=== PATIENT | female | born 1930 | race Caucasian/White ===

== ENCOUNTER 2016-10-19 18:16 | Emergency (ER) | payer OTHER, MEDICARE ==
[2016-10-19 18:43] VITALS: BMI 21.4
[2016-10-19] MEDS ORDERED: SODIUM CHLORIDE 0.9% 1000 ML INFUS.BAG IV ONE (20:51)
[2016-10-19] MEDS ORDERED: ONDANSETRON 4 MG/2 ML VIAL IVPUSH ONE (20:51)
[2016-10-19] MEDS ORDERED: ONDANSETRON 4 MG/2 ML VIAL ONE (20:56)
--- NOTE | 2016-10-19 21:07 | PDOC ---
History of Present Illness - General Chief Complaint: Pain Stated Complaint: ABDOMINAL PAIN AND VOMITTING Time Seen by Provider: 10/19/16 19:52 History Source: Patient, Family Exam Limitations: Dementia - History of Present Illness Initial Comments: 10/19/16 21:05 Patient is a 85-year-old f with history of hypertension dementia, lumbar radiculopathy brought by family sisters visting from [place] for complains nausea, vomiting and diarrhea which started at 4 PM to associated with some abdominal pain and weakness. Patient states she has not pain currently. Denies fever, chills, dysuria. Sister are concern about the patient's dementia and that the patient may need 24 hour care in the future. Currently patient lives in independent living with an aide in the daytime and her daughter takes care of her at night. She is ambulatory with a walker. Denies chest pain, dizziness. PMD: Dr. Doyle Neuro: Dr. Yost PMHX: as above PSOCHX: lives in independent Living FamHX; noncontributory All: NKDA GENERAL/CONSTITUTIONAL: [No fever or chills. (+) weakness. No weight change.] HEAD, EYES, EARS, NOSE AND THROAT: [No change in vision. No ear pain or discharge. No sore throat.] CARDIOVASCULAR: [No chest pain or shortness of breath.] RESPIRATORY: [No cough, wheezing, or hemoptysis.] GASTROINTESTINAL: [No nausea, vomiting, diarrhea or constipation. No rectal bleeding.] GENITOURINARY: [No dysuria, frequency, or change in urination.] MUSCULOSKELETAL: [No joint or muscle swelling or pain. No neck or back pain.] SKIN AND BREASTS: [No rash or easy bruising.] NEUROLOGIC: [No headache, vertigo, (+) dementia, loss of consciousness, or loss of sensation.] PSYCHIATRIC: [No depression or anxiety.] ENDOCRINE: [No increased thirst. No abnormal weight change.] HEMATOLOGIC/LYMPHATIC: [No anemia, easy bleeding, or history of blood clots.] ALLERGIC/IMMUNOLOGIC: [No hives or skin allergy. No latex allergy.] GENERAL: [The patient is awake, alert, and oriented x 2, in mild distress actively gaging.] HEAD: [Normal with no signs of trauma.] EYES: [Pupils equal, round and reactive to light, extraocular movements intact, sclera anicteric, conjunctiva clear.] ENT: [Ears normal, nares patent, oropharynx clear without exudates. Moist mucous membranes.] NECK: [Normal range of motion, supple without lymphadenopathy, JVD, or masses.] LUNGS: [Breath sounds equal, clear to auscultation bilaterally. No wheezes, and no crackles.] HEART: [Regular rate and rhythm, normal S1 and S2 without murmur, rub.] ABDOMEN: [Soft, nontender, normoactive bowel sounds. No guarding, no rebound. No masses.] EXTREMITIES: [Normal range of motion, no edema. No clubbing or cyanosis. No cords, erythema, or tenderness.] NEUROLOGICAL: [Cranial nerves II through XII grossly intact. alert and oriented x 2, Normal speech, gait not tested ambulatory with device.] PSYCH: [Normal mood, normal affect.] SKIN: [Warm, Dry, normal turgor, no rashes or lesions noted.] Past History - Past Medical History Allergies/Adverse Reactions: Allergies Allergy/AdvReac Type Severity Reaction Status Date / Time No Known Allergies Allergy Verified 10/19/16 18:36 Home Medications: Ambulatory Orders Donepezil HCl [Aricept -] 5 mg PO DAILY 07/25/16 Amlodipine Besylate [Norvasc -] 5 mg PO DAILY tablet 07/30/16 Docusate Sodium [Colace -] 100 mg PO TID capsule 07/30/16 Donepezil HCl [Aricept -] 10 mg PO DAILY tablet 07/30/16 Gabapentin [Neurontin -] 100 mg PO TID capsule 07/30/16 Heparin - 5,000 unit SQ BID vial 07/30/16 Memantine HCl [Namenda -] 5 mg PO DAILY tab 07/30/16 Dementia: Yes HTN: Yes - Surgical History Appendectomy: Yes - Psycho/Social/Smoking Cessation Hx Suicidal Ideation: No Smoking History: Never smoked Hx Alcohol Use: No Drug/Substance Use Hx: No Substance Use Type: None *Physical Exam - Vital Signs Last Vital Signs Temp Pulse Resp BP Pulse Ox 97.4 F L 62 18 174/84 99 10/19/16 18:37 10/19/16 18:37 10/19/16 18:37 10/19/16 18:37 10/19/16 18:37 ED Treatment Course - LABORATORY CBC & Chemistry Diagram: 10/19/16 21:20 10/19/16 21:15 Medical Decision Making - Medical Decision Making 10/20/16 Patient is a 85-year-old f with history of hypertension dementia, lumbar radiculopathy brought by family sisters visting from [place] for complains nausea, vomiting and diarrhea which started at 4 PM to associated with some abdominal pain consitent with gastroenteritis, will get labs incl trop, ekg, zofran and IVF 10/20/16 00:04 Labs reviewed not acute findings EKG SR rate 71, LAD, (-) ST-T wave changes cxr neg Patient is tolerating po Family states that the patient has perked up I discussed the physical exam findings, ancillary test results and final diagnoses with the patient. I answered all of the patient's questions. The patient was satisfied with the care received and felt comfortable with the discharge plan and treatment plan. The Patient agrees to follow up with the primary care physician within 24-72 hours. *DC/Admit/Observation/Transfer Diagnosis at time of Disposition: Dementia Qualifiers: Dementia type: unspecified type Dementia behavioral disturbance: without behavioral disturbance Qualified Code(s): F03.90 - Unspecified dementia without behavioral disturbance Nausea & vomiting Qualifiers: Vomiting type: unspecified Vomiting Intractability: non-intractable Qualified Code(s): R11.2 - Nausea with vomiting, unspecified Diarrhea Qualifiers: Diarrhea type: unspecified type Qualified Code(s): R19.7 - Diarrhea, unspecified - Discharge Dispostion Disposition: HOME Condition at time of disposition: Stable - Referrals Referrals: Yue Doyle [Non Staff, Medical] - - Patient Instructions Printed Discharge Instructions: Nausea and Vomiting-Adult, Diarrhea Additional Instructions: Your Discharge Instructions: You must call primary care physician within 24 hours to arrange follow-up. Return to the Emergency Department with any new, persistent or worsening symptoms, for fever, chills, SOB, dizziness or any other concerning changes that may occur.
[2016-10-19 21:25] LABS: BASOPHIL 1.4 % (0-2.0); EOSINOPHIL 0.2 % (0-4.5); MCH 31.2 pg (25.7-33.7); MCHC 33.5 g/dl (32.0-36.0); MEAN CELL VOLUME 93.1 fl (80-96); MEAN PLT VOLUME 7.5 fl (7.5-11.1); NEUTROPHILS 83.1 % (42.8-82.8); PLATELET COUNT 231 K/MM3 (134-434); RDW 13.4 % (11.6-15.6); WHITE BLOOD COUNT 6.5 K/mm3 (4.0-10.0)
[2016-10-19 21:49] LABS: ALBUMIN 3.5 g/dl (3.4-5.0); BILIRUBIN,TOTAL 0.3 mg/dL (0.2-1.0); CALCIUM 9.2 mg/dL (8.5-10.1); CREATININE 1.1 mg/dL (0.55-1.02); TOT PROT 6.6 g/dl (6.4-8.2)
[2016-10-19 21:52] LABS: TROPONIN I < 0.02 ng/ml (0.00-0.05)
[2016-10-19 21:58] LABS: URINE APPEARANCE SLCLOUDY; URINE BILIRUBIN NEGATIVE (NEGATIVE); URINE BLOOD NEGATIVE (NEGATIVE); URINE COLOR LTYELLOW; URINE GLUCOSE (UA) NEGATIVE (NEGATIVE); URINE KETONE NEGATIVE (NEGATIVE); URINE LEUK ESTERASE NEGATIVE (NEGATIVE); URINE NITRITE NEGATIVE (NEGATIVE); URINE PROTEIN NEGATIVE (NEGATIVE); URINE UROBILINOGEN NEGATIVE E.U./dl (0.2-1.0)
[2016-10-20 01:56] VITALS: BP 123/59; PULSE 96; TEMP 97.6
--- NOTE | 2016-10-21 16:14 | EKG ---
Test Reason : Blood Pressure : / mmHG Vent. Rate : 071 BPM Atrial Rate : 071 BPM P-R Int : 176 ms QRS Dur : 090 ms QT Int : 434 ms P-R-T Axes : 061 -30 055 degrees QTc Int : 471 ms NORMAL SINUS RHYTHM LEFT AXIS DEVIATION ABNORMAL ECG WHEN COMPARED WITH ECG OF 25-JUL-2016 13:56, LIKELY NO SIGNIFICANT CHANGES Confirmed by AG CRUZ MD ([id number]) on 10/21/2016 4:14:11 PM Referred By: Confirmed By:AG CRUZ MD
== END 2016-10-20 01:57 ==
LOC: JER 18:16
PROC: 3E033GC Introduction of Other Therapeutic Substance into Peripheral Vein, Percutaneous Approach (ICD-10-PCS; principal; 2016-10-19)
DX: K52.9 Noninfective gastroenteritis and colitis, unspecified (principal); I10 Essential (primary) hypertension; F03.90 Unspecified dementia, unspecified severity, without behavioral disturbance, psychotic disturbance, mood disturbance, and anxiety
CPT/HCPCS: 36415; 71010-TC; 80053; 81003; 82550; 83605; 84484; 85025; 93005; 93010; 96374; 99283-25

== ENCOUNTER 2017-06-29 12:08 | Emergency (ER) | payer OTHER, MEDICARE ==
--- NOTE | 2017-06-29 12:21 | PDOC ---
Attending Attestation - Resident Resident Name: Tanya Valadez - HPI HPI: 07/03/17 09:22 Pt presents to the ED complaining of generalized weakness and a single episode of vomiting. Denies fevers or pain. Reports that her symptoms have largely resolved. - Physicial Exam PE: 07/03/17 09:23 Agree with resident's exam. Patient is well appearing and alert. Abdomen is non tender on my exam. - Medical Decision Making 07/03/17 09:23 Pt presents to the ED complaining of generalized weakness and a single episode of vomiting. Symptoms have now resolved and patient is tolerating PO. Abdomen is non tender. Labs are normal. Given that her symptoms have resolved, she has no abdominal pain or tenderness and is tolerating PO, serious intraabdominal pathology seems unlikely. Will discharge home.
[2017-06-29 12:36] VITALS: BP 174/70; PULSE 63; TEMP 98.2; BMI 23.4
[2017-06-29] MEDS ORDERED: SODIUM CHLORIDE 0.9% 1000 ML INFUS.BAG IV ONE (12:36)
--- NOTE | 2017-06-29 12:43 | PDOC ---
History of Present Illness - General Chief Complaint: Weakness Stated Complaint: WEAKNESS, NAUSEA Time Seen by Provider: 06/29/17 12:16 - History of Present Illness Initial Comments: 06/29/17 12:37 Majority of HPI obtained from aide @ bedside as patient has Alzheimer's Dementia and keeps repeating "I'm fine." Patient is an 86 y.o. female with a PMH of Alzheimer's Dementia, HTN and L5 radiculopathy who presents to our ED via EMS for an episode of vomiting and stating "I don't feel well." As per cardiovascular invasive specialist, patient was in her usual state of health this morning and while eating her breakfast vomited (non-bloody) one time and then cardiovascular invasive specialist called family and EMS. Health Services Coordinator who is with patient daily denies any syncopal episode, patient c/o chest pain or shortness of breath or any recent medication changes. Surgical: None NKDA PMD: Dr. Doyle Social: denies cigarettes, 1-2 alcoholic drinks monthly, denies recreational drugs Past History - Past Medical History Allergies/Adverse Reactions: Allergies Allergy/AdvReac Type Severity Reaction Status Date / Time No Known Allergies Allergy Verified 10/19/16 18:36 Home Medications: Ambulatory Orders Donepezil HCl [Aricept -] 10 mg PO DAILY tablet 07/30/16 Memantine HCl [Namenda -] 28 mg PO DAILY 06/29/17 Telmisartan/Hydrochlorothiazid [Telmisartan-Hctz 40-12.5 mg Tb] 1 each PO DAILY 06/29/17 Dementia: Yes HTN: Yes - Surgical History Appendectomy: Yes - Suicide/Smoking/Psychosocial Hx Smoking History: Never smoked Have you smoked in the past 12 months: No Information on smoking cessation initiated: No Hx Alcohol Use: No Drug/Substance Use Hx: No Substance Use Type: None Review of Systems - Review of Systems Able to Perform ROS?: No *Physical Exam - Vital Signs Last Vital Signs Temp Pulse Resp BP Pulse Ox 98.2 F 63 18 174/70 99 06/29/17 12:19 06/29/17 12:19 06/29/17 12:19 06/29/17 12:19 06/29/17 12:19 - Physical Exam General Appearance: Yes: Appropriately Dressed HEENT: positive: ROSE[place] Respiratory/Chest: positive: Lungs Clear, Normal Breath Sounds Cardiovascular: positive: S1, S2 Gastrointestinal/Abdominal: positive: Normal Bowel Sounds Integumentary: positive: Warm, Other (B/L LE xerostosis) Neurologic: positive: Alert ED Treatment Course - LABORATORY CBC & Chemistry Diagram: 06/29/17 12:42 06/29/17 12:42 Medical Decision Making - Medical Decision Making 06/29/17 14:18 Patient is an 86 y.o. female who presents with an isolated episode of post prandial emesis. As patient has a h/o Alzheimer's dementia, subjective complaints are difficult to ascertain. Generalized work-up for any active infectious or cardiac process initiated. PLAN: 1. CBC, CMP 2. EKG 3. CXR CMP notable for mild GERALD (1.2 today, 0.9 --> 1.1 on previous visits). Patient given gentle hydration with 500 mL IV NS. CXR shows no acute cardiopulmonary process. EKG shows sinus bradycardia (HR 56) with LAD (QRS complex negative in aVF) with normal SD, QT intervals, and no ST segment elevations/depressions and no T wave flattening. LAD consistent with prior ECG from 10/2016. Patient's aide @ bedside confirms patient has daily assistance and is at baseline. As patient was tolerating PO intake, improved and ambulatory, patient discharged home with return precautions and instructions to follow-up with PCP. *DC/Admit/Observation/Transfer Diagnosis at time of Disposition: Dehydration - Discharge Dispostion Disposition: HOME Condition at time of disposition: Good Admit: No - Patient Instructions Printed Discharge Instructions: Improving Nutrition in the Elderly, DI for Dehydration -- Adult Additional Instructions: Please follow up with your PCP, Dr. Doyle, in the next 3-5 days. A copy of your lab work has been provided to you. Please return to the Emergency Department for any worsening or concerning symptoms.
[2017-06-29 12:50] LABS: EOSINOPHIL 0.3 % (0-4.5); MCH 31.1 pg (25.7-33.7); MCHC 33.4 g/dl (32.0-36.0); MEAN CELL VOLUME 93.2 fl (80-96); MEAN PLT VOLUME 7.4 fl (7.5-11.1); NEUTROPHILS 81.4 % (42.8-82.8); PLATELET COUNT 187 K/MM3 (134-434); RDW 12.9 % (11.6-15.6); WHITE BLOOD COUNT 6.7 K/mm3 (4.0-10.0)
[2017-06-29 13:30] LABS: ALBUMIN 3.6 g/dl (3.4-5.0); ANION GAP 10 (8-16); BILIRUBIN,TOTAL 0.4 mg/dL (0.2-1.0); CALCIUM 9.1 mg/dL (8.5-10.1); CO2 30 mmol/L (21-32); CREATININE 1.2 mg/dL (0.55-1.02); GLUCOSE,RANDOM 126 mg/dL (74-106); MAGNESIUM 2.2 mg/dL (1.8-2.4); SGOT/AST 22 U/L (15-37); SGPT/ALT 25 U/L (12-78); TOT PROT 6.6 g/dl (6.4-8.2)
[2017-06-29 13:31] LABS: ALK PHOS 83 U/L (45-117)
--- NOTE | 2017-06-30 10:10 | EKG ---
Test Reason : Blood Pressure : / mmHG Vent. Rate : 056 BPM Atrial Rate : 056 BPM P-R Int : 194 ms QRS Dur : 090 ms QT Int : 458 ms P-R-T Axes : 056 -33 010 degrees QTc Int : 441 ms SINUS BRADYCARDIA LEFT AXIS DEVIATION MODERATE VOLTAGE CRITERIA FOR LVH, MAY BE NORMAL VARIANT ABNORMAL ECG WHEN COMPARED WITH ECG OF 19-OCT-2016 22:58, NO SIGNIFICANT CHANGE WAS FOUND Confirmed by NANCY CHAPMAN, AG ([id number]) on 06/30/2017 10:10:25 AM Referred By: Confirmed By:AG CRUZ MD
== END 2017-06-29 14:26 ==
LOC: JER 12:08
DX: E86.0 Dehydration (principal); G30.9 Alzheimer's disease, unspecified; F02.80 Dementia in other diseases classified elsewhere, unspecified severity, without behavioral disturbance, psychotic disturbance, mood disturbance, and anxiety; I10 Essential (primary) hypertension; L85.3 Xerosis cutis
CPT/HCPCS: 36415; 71020-TC; 80053; 83605; 83735; 85025; 93005; 93010; 99284-25

== ENCOUNTER 2019-06-10 09:48 | Inpatient (IN) | payer OTHER, MEDICARE ==
[2019-06-10 10:36] LABS: BASO % 0.6 % (0-2.0); EOS % 0.1 % (0-4.5); HEMATOCRIT 32.7 % (32.4-45.2); LYMPH % 9.4 % (8-40); MCH 31.3 pg (25.7-33.7); MCHC 33.6 g/dl (32.0-36.0); MEAN CELL VOLUME 93.2 fl (80-96); MEAN PLT VOLUME 7.6 fl (7.5-11.1); MONO % 8.2 % (3.8-10.2); NEUT % 81.7 % (42.8-82.8); PLATELET COUNT 180 K/MM3 (134-434); RBC 3.51 M/mm3 (3.60-5.2); RDW 13.3 % (11.6-15.6); WHITE BLOOD COUNT 7.2 K/mm3 (4.0-10.0)
--- NOTE | 2019-06-10 10:41 | PDOC ---
Documentation entered by Luna Jones SCRIBE, acting as scribe for Felisha Gambino MD. Felisha Gambino MD: This documentation has been prepared by the Karen palmer Adrianna, SCRIBE, under my direction and personally reviewed by me in its entirety. I confirm that the documentation accurately reflects all work, treatment, procedures, and medical decision making performed by me. History of Present Illness - General Chief Complaint: Injury Stated Complaint: FALL Time Seen by Provider: 06/10/19 10:18 History Source: Care Provider Exam Limitations: Dementia - History of Present Illness Initial Comments: 86 y.o. female with a PMH of Alzheimer's Dementia, HTN and L5 radiculopathy, presenting s/p fall. Patient is poor historian secondary to Dementia, and patients aid at bedside provides history. Aid notes that she is with the patient from 9-5 (Friday-Friday, another aid comes for assistance throughout the night), and upon getting to her apartment this morning at 8:50 am she found the patient on the floor in the bathroom. She notes the patient was clinging to her bath curtains, complaining of neck and low back pain. Aid notes the patient was awake and conversational, but was nervous, confused, and unsure of what had happened (patient cannot recall the event). Patient is oriented to place and person at baseline. She presents with bruising to the left shoulder and left knee, and endorses left hip pain while in the ED. The patient is not on aspirin , plavix, Coumadin, or any other blood thinners. Denies fever, chills, chest pain, SOB, palpitation, dizziness, N, V, D, abdominal pain, bladder and bowel problems, leg swelling, rash. No sick contacts or travel. No new changes in medications. No suspicious food intake Allergies: None Past Medical History/PSH: Alzheimer's Dementia, HTN and L5 radiculopathy, appendectomy Social history: Lives at home with 24/7 aid Friday-Friday and daughter Friday- Friday. No tobacco, ETOH or drug use. Meds: as documented in EMR Family history: noncontributory PMD: Dr. Doyle Past History - Past Medical History Allergies/Adverse Reactions: Allergies Allergy/AdvReac Type Severity Reaction Status Date / Time No Known Allergies Allergy Verified 06/10/19 09:55 Home Medications: Ambulatory Orders Donepezil HCl [Aricept -] 10 mg PO DAILY tablet 07/30/16 Memantine HCl [Namenda -] 28 mg PO DAILY 06/29/17 Telmisartan/Hydrochlorothiazid [Telmisartan-Hctz 40-12.5 mg Tb] 1 each PO DAILY 06/29/17 COPD: No Dementia: Yes HTN: Yes - Surgical History Appendectomy: Yes - Psycho Social/Smoking Cessation Hx Smoking History: Never smoked Have you smoked in the past 12 months: No Hx Alcohol Use: No Drug/Substance Use Hx: No Substance Use Type: None Review of Systems - Review of Systems Able to Perform ROS?: No (secondary to dementia) *Physical Exam - Vital Signs Last Vital Signs Temp Pulse Resp BP Pulse Ox 98.1 F 81 18 179/74 H 100 06/10/19 09:56 06/10/19 09:56 06/10/19 09:56 06/10/19 09:56 06/10/19 09:56 - Physical Exam Comments: General: GCS 14 NAD, well appearing, demented and pleasant. Follows commands. HEENT: NCAT, PERRL, EOMI. Airway intact. No battles sign or raccoon eyes. No e/ o ocular. Dentition intact. No e/o septal hematoma, nasal bridge stable. Neck: neck supple, no midline C spine tenderness or deformity, ROM intact. No anterior mass or crepitus, trachea midline. Resp: Lungs clear bilaterally Chest: no clavicle or chest wall tenderness or crepitus CVS: RRR, 2+ pulses throughout. Abdomen: Abdomen soft, nontender, nondistended. Back: Back nontender, no midline spinal tenderness along cervical/thoracic/ lumbar spine, FROM, no stepoffs. MSK: +left knee swelling. +left lateral hip ttp at the greater trochanter. Pelvis stable, Extremities symmetric, no focal areas of tenderness or deformities, proximal and distally; no pain on axial loading. FROM in all extrem. No laxity in left knee joint. 5/5 vegetable tier strength, 5/5 prox and distal strength and shoulder shrug bilaterally. Neuro: Alert, oriented appropriately to person and place. CN II-XII grossly symmetric and intact. no focal neuro deficits. Sensation and strength intact throughout. Skin: intact, well perfused. No ecchymosis neck, chest or abdomen or back. + ecchymosis to left anterior knee and shoulder joint. +dry skin. +mild skin discoloration diffusely. Heart Score/ECG Review #1 ECG reviewed & interpreted by me at: 10:20 General ECG Interpretation: Sinus Rhythm, Normal Rate, Normal Intervals, No acute ischemic changes Compared to previous ECG there are: No significant change 06/10/19 10:40 EKG normal sinus rhythm at 80 bpm, no interval abnormalities, narrow QRS, ST and T wave segments and morphology normal. unchanged. ED Treatment Course - LABORATORY CBC & Chemistry Diagram: 06/10/19 10:25 06/10/19 10:25 - RADIOLOGY Radiology Studies Ordered: Category Date Time Status CERVICAL SPINE CT W/O CONTR [CT] Stat CT Scan 06/10/19 10:[address] WITHOUT CONTRAST [CT] Stat CT Scan 06/10/19 10:33 Ordered CHEST PA & LAT [RAD] Stat Radiology 06/10/19 10:17 Ordered HIP & PELVIS-LEFT [RAD] Stat Radiology 06/10/19 10:31 Ordered KNEE 3 POS-LEFT [RAD] Stat Radiology 06/10/19 10:31 Ordered SHOULDER-LEFT [RAD] Stat Radiology 06/10/19 10:31 Ordered Radiograph Interpretation: EXAM#: TYPE/EXAM: RESULT: [id number] RAD/CHEST PA LAT Chest pain. Rule out infiltrate. Impression. No evidence of CHF, pulmonary infiltrates, pneumothorax, or large pleural effusion. Reported By: Saravanan Toure MD 06/10/19 11:21 EXAM#: TYPE/EXAM: RESULT: [id number] RAD/SHOULDER-LEFT Evaluate for fracture. Left shoulder ecchymosis. Left shoulder 2 views. No evidence of glenohumeral joint dislocation. AC joint is not widened. The visualized osseous structures appear intact. No acute bony abnormalities are seen. Reported By: Saravanan Toure MD 06/10/19 11:22 EXAM#: TYPE/EXAM: RESULT: [id number] RAD/HIP PELVIS-LEFT Evaluate for fracture. Impression. No acute fracture is seen. If symptoms persist follow-up imaging may be considered. Reported By: Saravanan Toure MD 06/10/19 11:28 EXAM#: TYPE/EXAM: RESULT: [id number] RAD/KNEE 3 POS-LEFT Left knee: Pain. 3 views of the left knee reveal loss of bone density, degenerative changes, chondrocalcinosis and vascular calcifications. An acute fracture or subluxation is not seen. A joint effusion is not visualized. If symptoms persist, further imaging may be of help. Correlation recommended. Reported By: Juan Miller MD 06/10/19 11:32 EXAM#: TYPE/EXAM: RESULT: [id number] CT/HEAD CT WITHOUT CONTRAST CT scan of the brain c-. Evaluate for intracranial hemorrhage. Impression. No evidence of acute intracranial hemorrhage, edema, midline shift, mass effect, or skull fracture. No CT evidence of acute territorial ischemic changes. Reported By: Saravanan Toure MD 06/10/19 11:47 EXAM#: TYPE/EXAM: RESULT: [id number] CT/CERVICAL SPINE CT W/O CONTR Status post fall. Rule out injury IMPRESSION: The alignment is satisfactory. No gross fracture or subluxation is seen. Mild degenerative disc disease and prominent left facet hypertrophy, as described above. Reported By: Ralph Rico MD 06/10/19 13:42 Medical Decision Making - Medical Decision Making 06/10/19 10:39 See HPI for details. Prior notes reviewed, including admissions, discharges and consultations. Vital signs reviewed, wnl. Vital Signs Temp Pulse Resp BP Pulse Ox 98.1 F 81 18 179/74 H 100 06/10/19 09:56 06/10/19 09:56 06/10/19 09:56 06/10/19 09:56 06/10/19 09:56 ddx ICH, SDH, contusion, closed head injury, rib fx, chest contusion, pelvic fx , hip fx, contusion, msk strain, sprain. electrolyte/metabolic derangements, rhabdomyolysis. laboratory results and imaging reviewed, basic labs and lytes wnl, including Cr Cardiac panel_ELEVATED ck level >1300 - remained the same after fluids initial trop neg, trended up to 0.06 likely demand and metabolic EKG normal sinus rhythm at 80 bpm, no interval abnormalities, narrow QRS, ST and T wave segments and morphology normal. unchanged. ED course -interventions: IVF given mild rhabdo, preserved Cr which is reassuring trend trop/ck levels admit to Dr Bustamante service, medical management, observation and tele given + trop. 06/10/19 10:41 06/10/19 14:19 06/10/19 15:08 Discharge - Discharge Information Problems reviewed: Yes Clinical Impression/Diagnosis: Elevated creatine kinase level Rhabdomyolysis Qualifiers: Rhabdomyolysis type: traumatic Encounter type: initial encounter Qualified Code (s): T79.6XXA - Traumatic ischemia of muscle, initial encounter Condition: Stable - Admission Yes - Follow up/Referral - Patient Discharge Instructions - Post Discharge Activity
[2019-06-10 11:24] LABS: ALBUMIN 3.4 g/dl (3.4-5.0); BILIRUBIN,TOTAL 0.7 mg/dL (0.2-1); BLOOD UREA NITROGEN 21.8 mg/dL (7-18); CALCIUM 8.8 mg/dL (8.5-10.1); CREATININE 1.2 mg/dL (0.55-1.3); MAGNESIUM 2.1 mg/dL (1.8-2.4); POTASSIUM 3.6 mmol/L (3.5-5.1)
[2019-06-10] MEDS ORDERED: SODIUM CHLORIDE 0.9% 500 ML INFUS.BAG IV ONE ×2 (11:30→11:49)
[2019-06-10 13:19] LABS: URINE APPEARANCE CLEAR; URINE BILIRUBIN NEGATIVE (NEGATIVE); URINE COLOR YELLOW; URINE GLUCOSE (UA) NEGATIVE (NEGATIVE); URINE KETONE NEGATIVE (NEGATIVE); URINE LEUK ESTERASE NEGATIVE (NEGATIVE); URINE NITRITE NEGATIVE (NEGATIVE); URINE PROTEIN NEGATIVE (NEGATIVE); URINE UROBILINOGEN 0.2 mg/dL (0.2-1.0)
--- NOTE | 2019-06-10 14:34 | EKG ---
Test Reason : Blood Pressure : / mmHG Vent. Rate : 080 BPM Atrial Rate : 080 BPM P-R Int : 164 ms QRS Dur : 098 ms QT Int : 414 ms P-R-T Axes : 049 -44 054 degrees QTc Int : 477 ms NORMAL SINUS RHYTHM LEFT AXIS DEVIATION INCOMPLETE RIGHT BUNDLE BRANCH BLOCK MINIMAL VOLTAGE CRITERIA FOR LVH, MAY BE NORMAL VARIANT SEPTAL INFARCT , AGE UNDETERMINED ABNORMAL ECG WHEN COMPARED WITH ECG OF 29-JUN-2017 12:14, INCOMPLETE RIGHT BUNDLE BRANCH BLOCK IS NOW PRESENT SEPTAL INFARCT IS NOW PRESENT Confirmed by ARACELI CHAPMAN, ELHAM ([id number]) on 06/10/2019 2:33:53 PM Referred By: Confirmed By:ELHAM CHARLES MD
[2019-06-10] MEDS: SODIUM CHLORIDE 0.45% 1,000 ML IV SCH (15:54)
[2019-06-10] MEDS ORDERED: FUROSEMIDE 40 MG/4 ML INJECTABLE VIAL IVPUSH ONE (21:45)
[2019-06-10] MEDS: MEMANTINE HCL 10 MG TABLET (FP) PO SCH (22:01)
--- NOTE | 2019-06-10 23:40 | HP ---
Admitting History and Physical - Admission History of Present Illness: 86 y.o. female with a PMH of Alzheimer's Dementia, HTN and L5 radiculopathy, presenting s/p fall. Patient is poor historian secondary to Dementia, and patients aid at bedside provides history. Aid notes that she is with the patient from 9-5 (Friday-Friday, another aid comes for assistance throughout the night), and upon getting to her apartment this morning at 8:50 am she found the patient on the floor in the bathroom. She notes the patient was clinging to her bath curtains, complaining of neck and low back pain. Aid notes the patient was awake and conversational, but was nervous, confused, and unsure of what had happened (patient cannot recall the event). Patient is oriented to place and person at baseline. She presents with bruising to the left shoulder and left knee, and endorses left hip pain while in the ED. The patient is not on aspirin , plavix, Coumadin, or any other blood thinners. Denies fever, chills, chest pain, SOB, palpitation, dizziness, N, V, D, abdominal pain, bladder and bowel problems, leg swelling, rash. No sick contacts or travel. No new changes in medications. No suspicious food intake Allergies: None Past Medical History/PSH: Alzheimer's Dementia, HTN and L5 radiculopathy, appendectomy Social history: Lives at home with 24/7 aid Friday-Friday and daughter Friday- Friday. No tobacco, ETOH or drug use. 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 Cardiovascular: Yes: HTN Reproductive: Yes: Postmenopausal Musculoskeletal: Yes: Chronic low back pain - Smoking History Smoking history: Never smoked Have you smoked in the past 12 months: No - Alcohol/Substance Use Hx Alcohol Use: No - Social History Usual Living Arrangement: Yes: Assisted Living ADL: Support Services History of Recent Travel: No Home Medications - Allergies Allergies/Adverse Reactions: Allergies Allergy/AdvReac Type Severity Reaction Status Date / Time No Known Allergies Allergy Verified 06/10/19 09:55 - Home Medications Home Medications: Ambulatory Orders Donepezil HCl [Aricept -] 10 mg PO DAILY tablet 07/30/16 Acetaminophen [Tylenol .Regular Strength -] 650 mg PO Q6H PRN tablet 06/17/19 Cefuroxime Axetil [Ceftin -] 250 mg PO BID 3 Days #6 tablet 06/17/19 Losartan 50Mg/Hctz 12.5MG [Hyzaar -] 1 tab PO DAILY tablet 06/17/19 Memantine HCl [Namenda -] 10 mg PO BID tablet 06/17/19 Potassium Chloride [K-Dur -] 40 meq PO DAILY tablet.er 06/17/19 Physical Examination Vital Signs: Vital Signs Temperature 97.9 F 06/10/19 22:00 Pulse Rate 83 06/10/19 22:00 Respiratory Rate 18 06/10/19 22:00 Blood Pressure 167/67 06/10/19 22:00 O2 Sat by Pulse Oximetry (%) 97 06/10/19 21:00 Eyes: Yes: Conjunctiva Clear, EOM Intact HENT: Yes: Atraumatic, Normocephalic Neck: Yes: Supple, Trachea Midline Cardiovascular: Yes: Regular Rate and Rhythm Respiratory: Yes: CTA Bilaterally Gastrointestinal: Yes: Normal Bowel Sounds, Soft ...Rectal Exam: Yes: Deferred Renal/: Yes: WNL Breast(s): Yes: WNL Musculoskeletal: Yes: Back Pain, Muscle Weakness Extremities: Yes: WNL Peripheral Pulses WNL: Yes Neurological: Yes: Pre-Existing Deficit ...Motor Strength: WNL Psychiatric: Yes: Alert, Other (dementia) Labs: CBC, BMP 06/10/19 10:25 06/10/19 10:25 Problem List - Problems (1) Rhabdomyolysis Code(s): M62.82 - RHABDOMYOLYSIS Qualifiers: Rhabdomyolysis type: traumatic Encounter type: initial encounter Qualified Code(s): T79.6XXA - Traumatic ischemia of muscle, initial encounter (2) Dementia Code(s): F03.90 - UNSPECIFIED DEMENTIA WITHOUT BEHAVIORAL DISTURBANCE Qualifiers: Dementia type: unspecified type Dementia behavioral disturbance: without behavioral disturbance Qualified Code(s): F03.90 - Unspecified dementia without behavioral disturbance (3) HTN (hypertension) Code(s): I10 - ESSENTIAL (PRIMARY) HYPERTENSION Qualifiers: Hypertension type: essential hypertension Qualified Code(s): I10 - Essential (primary) hypertension (4) Lumbar disc herniation with radiculopathy Code(s): M51.16 - INTERVERTEBRAL DISC DISORDERS W RADICULOPATHY, LUMBAR REGION Assessment/Plan #S/p unwitnessed fall - CT scan head neg - Cervical spine CT neg - Lt shoulder xray neg - Lt Knee xray neg - Lt hip/ pevis xray neg - PT eval # Rhabdo - Iv fuids observe for floud overload - lasix as needed - trend CK #Dementia - cont Aricept and Namenda - Agitated at night- Ativan PRN - UA neg, C& S pending - Chest ray neg for acute pathology # BP fluctuates Cont home med # New onset intentional tremor Neuro consult
[2019-06-11] MEDS: SODIUM CHLORIDE 0.45% 1,000 ML IV SCH ×4 (01:36→21:29)
[2019-06-11 06:46] LABS: HEMATOCRIT 34.6 % (32.4-45.2); HEMOGLOBIN 11.6 GM/dL (10.7-15.3); MCH 31.3 pg (25.7-33.7); MCHC 33.5 g/dl (32.0-36.0); MEAN CELL VOLUME 93.3 fl (80-96); MEAN PLT VOLUME 7.8 fl (7.5-11.1); PLATELET COUNT 194 K/MM3 (134-434); RBC 3.71 M/mm3 (3.60-5.2); WHITE BLOOD COUNT 5.8 K/mm3 (4.0-10.0)
[2019-06-11 07:43] LABS: ALBUMIN 3.5 g/dl (3.4-5.0); BLOOD UREA NITROGEN 15.6 mg/dL (7-18); CALCIUM 8.9 mg/dL (8.5-10.1); CREATININE 1.1 mg/dL (0.55-1.3); POTASSIUM 3.5 mmol/L (3.5-5.1); TOT PROT 6.5 g/dl (6.4-8.2)
[2019-06-11] MEDS: MEMANTINE HCL 10 MG TABLET (FP) PO SCH ×2 (09:10→21:29)
[2019-06-11] MEDS: LOSARTAN 50MG/HCTZ 12.5MG 1 TAB (FP) PO SCH (09:10)
[2019-06-11] MEDS: DONEPEZIL HCL 5 MG TABLET (FP) PO SCH (09:10)
--- NOTE | 2019-06-11 10:15 | PN ---
Progress Note (short form) - Note Progress Note: 88 y/o female found sitting in bed, alert and O x 2. Denies pain at present. Dtr present at bedside. Nurse reports that pt was agitated during the night. Vital Signs Period Temp Pulse Resp BP Sys/Chambers Pulse Ox Last 24 Hr 97.8 F-98.4 F 73-86 18-18 144-175/67-91 97-98 CBC, BMP 06/11/19 06:10 06/11/19 06:10 HEENT- NL Neck- Supple Lungs- CTAB Heart- S1/S2 Abd- Soft, NT Skin- Intact but bruises on lt shoulder, lt knee and lt upper back Ext- Full ROM UEs and LEs, Good hand strength B/L Intentional tremors rt UE No B/L LE edema Active Medications Donepezil HCl (Aricept -) 10 mg PO DAILY [facility] Last Admin: 06/11/19 09:10 Dose: 10 mg HCTZ/Losartan Potassium (Hyzaar -) 1 tab PO DAILY [facility] Last Admin: 06/11/19 09:10 Dose: 1 tab Sodium Chloride (1/2 Normal Saline) 1,000 mls @ 100 mls/hr IV ASDIR [facility] Last Admin: 06/11/19 01:36 Dose: 100 mls/hr Lorazepam (Ativan -) 0.5 mg PO BID PRN PRN Reason: ANXIETY Memantine (Namenda -) 10 mg PO BID [facility] Last Admin: 06/11/19 09:10 Dose: 10 mg #S/p unwitnessed fall - CT scan head neg - Cervical spine CT neg - Lt shoulder xray neg - Lt Knee xray neg - Lt hip/ pevis xray neg - PT eval #Dementia - cont Aricept and Namenda - Agitated at night- Ativan PRN - UA neg, C& S pending - Chest ray neg for acute pathology No signs of heart failure # BP fluctuates Cont home med # New onset intentional tremor Neuro consult Plan- All neg results discussed with dtr. Informed of nighttime agitation. Ativan PRN will be rx'd. Informed Neuro will be consulted for new onset tremor. Awaiting PT eval and culture results. Dtr agreed to plan of care. Problem List - Problems (1) Rhabdomyolysis Code(s): M62.82 - RHABDOMYOLYSIS Qualifiers: Rhabdomyolysis type: traumatic Encounter type: initial encounter Qualified Code(s): T79.6XXA - Traumatic ischemia of muscle, initial encounter (2) Dementia Code(s): F03.90 - UNSPECIFIED DEMENTIA WITHOUT BEHAVIORAL DISTURBANCE Qualifiers: Dementia type: unspecified type Dementia behavioral disturbance: without behavioral disturbance Qualified Code(s): F03.90 - Unspecified dementia without behavioral disturbance (3) HTN (hypertension) Code(s): I10 - ESSENTIAL (PRIMARY) HYPERTENSION Qualifiers: Hypertension type: essential hypertension Qualified Code(s): I10 - Essential (primary) hypertension (4) Lumbar disc herniation with radiculopathy Code(s): M51.16 - INTERVERTEBRAL DISC DISORDERS W RADICULOPATHY, LUMBAR REGION
[2019-06-11] MEDS: LORazepam 0.5 MG TABLET PO PRN ×2 (11:04→21:59)
[2019-06-11] MEDS ORDERED: FLU VACCINE QUAD 60 MCG/0.5 ML (MDV 19-20) IM ONE (11:32)
[2019-06-11] MEDS ORDERED: PNEUMOC 13-VAL CONJ-DIP CRM/PF 0.5 ML DISP.SYRIN IM ONE (11:32)
--- NOTE | 2019-06-11 12:17 | CONSULT ---
Consult - text type - Consultation Consultation Note: Neurology History of Present Illness: 86 y.o. female with a PMH of Alzheimer's Dementia, HTN and L5 radiculopathy, presenting s/p fall. Patient is poor historian secondary to Dementia, and patients daughter at bedside provided history. Patient presented found on the floor in the bathroom. Aid noted the patient was clinging to her bath curtains, complaining of neck and low back pain. Aid noted the patient was awake and conversational, but was nervous, confused, and unsure of what had happened ( patient cannot recall the event). Patient is oriented to place and person at baseline. She presents with bruising to the left shoulder and left knee, and endorses left hip pain while in the ED. The patient is not on aspirin, plavix, Coumadin, or any other blood thinners. Denied fever, chills, chest pain, SOB, palpitation, dizziness, N, V, D, abdominal pain, bladder and bowel problems, leg swelling, rash. No sick contacts or travel. No new changes in medications. No suspicious food intake. I was consulted as patient reportedly withtremor of the right upper extremity.. According to the daughter this was not present previously and possibly related to acute hospitalization. I discussed with them that there are medications available for tremor such as primidone 50 mg but at this point it may be better to just monitor and discussed the tremor continues as an outpatient taken follow-up in the office for further evaluation and management. The daughter was in agreement and wanted to pursue conservative measures. I did review the noncontrast head CT that was completed on admission and did not show any significant structural abnormalities. I discussed this with thepatient and daughter at bedside as well. 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 Cardiovascular: Yes: HTN Reproductive: Yes: Postmenopausal Musculoskeletal: Yes: Chronic low back pain - Smoking History Smoking history: Never smoked Have you smoked in the past 12 months: No - Alcohol/Substance Use Hx Alcohol Use: No - Social History Usual Living Arrangement: Yes: Assisted Living ADL: Support Services History of Recent Travel: No Family: HTN Home Medications - Allergies Allergies/Adverse Reactions: Allergies Allergy/AdvReac Type Severity Reaction Status Date / Time No Known Allergies Allergy Verified 06/10/19 09:55 - Home Medications Home Medications: Ambulatory Orders Donepezil HCl [Aricept -] 10 mg PO DAILY tablet 07/30/16 Memantine HCl [Namenda -] 28 mg PO DAILY 06/29/17 Telmisartan/Hydrochlorothiazid [Telmisartan-Hctz 40-12.5 mg Tb] 1 each PO DAILY 06/29/17 Physical Examination Vital Signs: Vital Signs Temperature 97.9 F 06/10/19 22:00 Pulse Rate 83 06/10/19 22:00 Respiratory Rate 18 06/10/19 22:00 Blood Pressure 167/67 06/10/19 22:00 O2 Sat by Pulse Oximetry (%) 97 06/10/19 21:00 Eyes: Yes: Conjunctiva Clear, EOM Intact HENT: Yes: Atraumatic, Normocephalic Neck: Yes: Supple, Trachea Midline Cardiovascular: Yes: Regular Rate and Rhythm Respiratory: Yes: CTA Bilaterally Gastrointestinal: Yes: Normal Bowel Sounds, Soft ...Rectal Exam: Yes: Deferred Renal/: Yes: WNL Breast(s): Yes: WNL Musculoskeletal: Yes: Back Pain, Muscle Weakness Extremities: Yes: WNL Peripheral Pulses WNL: Yes Neurological: CN intact, moves extremities symmetrically, bilateral. Sensory intact, mild intention tremor noted CBCD WBC 5.8 K/mm3 (4.0-10.0) 06/11/19 06:10 RBC 3.71 M/mm3 (3.60-5.2) 06/11/19 06:10 Hgb 11.6 GM/dL (10.7-15.3) 06/11/19 06:10 Hct 34.6 % (32.4-45.2) 06/11/19 06:10 MCV 93.3 fl (80-96) 06/11/19 06:10 MCHC 33.5 g/dl (32.0-36.0) 06/11/19 06:10 RDW 13.0 % (11.6-15.6) 06/11/19 06:10 Plt Count 194 K/MM3 (134-434) 06/11/19 06:10 MPV 7.8 fl (7.5-11.1) 06/11/19 06:10 CMP Sodium 144 mmol/L (136-145) 06/11/19 06:10 Potassium 3.5 mmol/L (3.5-5.1) 06/11/19 06:10 Chloride 108 mmol/L (98-107) H 06/11/19 06:10 Carbon Dioxide 28 mmol/L (21-32) 06/11/19 06:10 Anion Gap 9 MMOL/L (8-16) 06/11/19 06:10 BUN 15.6 mg/dL (7-18) 06/11/19 06:10 Creatinine 1.1 mg/dL (0.55-1.3) 06/11/19 06:10 Random Glucose 79 mg/dL (74-106) 06/11/19 06:10 Calcium 8.9 mg/dL (8.5-10.1) 06/11/19 06:10 Total Bilirubin 1.0 mg/dL (0.2-1) 06/11/19 06:10 AST 65 U/L (15-37) H 06/11/19 06:10 ALT 38 U/L (13-61) 06/11/19 06:10 Alkaline Phosphatase 94 U/L (45-117) 06/11/19 06:10 Total Protein 6.5 g/dl (6.4-8.2) 06/11/19 06:10 Albumin 3.5 g/dl (3.4-5.0) 06/11/19 06:10 CARDIAC ENZYMES Creatine Kinase 1216 U/L (26-192) H 06/10/19 13:24 Troponin I 0.06 ng/ml (0.00-0.05) H 06/10/19 13:24 Plan: 86 y.o. female with a PMH of Alzheimer's Dementia, HTN and L5 radiculopathy, presenting s/p fall. Patient is poor historian secondary to Dementia, and patients daughter at bedside provided history. Patient presented found on the floor in the bathroom. Aid noted the patient was clinging to her bath curtains, complaining of neck and low back pain. Aid noted the patient was awake and conversational, but was nervous, confused, and unsure of what had happened ( patient cannot recall the event). Patient is oriented to place and person at baseline. She presents with bruising to the left shoulder and left knee, and endorses left hip pain while in the ED. The patient is not on aspirin, plavix, Coumadin, or any other blood thinners. Denied fever, chills, chest pain, SOB, palpitation, dizziness, N, V, D, abdominal pain, bladder and bowel problems, leg swelling, rash. No sick contacts or travel. No new changes in medications. No suspicious food intake. I was consulted as patient reportedly withtremor of the right upper extremity.. According to the daughter this was not present previously and possibly related to acute hospitalization. I discussed with them that there are medications available for tremor such as primidone 50 mg but at this point it may be better to just monitor and discussed the tremor continues as an outpatient taken follow-up in the office for further evaluation and management. The daughter was in agreement and wanted to pursue conservative measures. I did review the noncontrast head CT that was completed on admission and did not show any significant structural abnormalities. I discussed this with thepatient and daughter at bedside as well. Continue dementia medications consider psych evaluation if needed as patient's daughter reporting hallucinations. Fall precautions recommended, consider syncopal workup. Patient to follow-up in office if tremor continues after discharge.
[2019-06-11] MEDS ORDERED: ACETAMINOPHEN 325 MG TABLET (FP) PO PRN (22:55)
[2019-06-11] MEDS ORDERED: HALOPERIDOL LACTATE 5 MG/ML IM ONE (23:00)
[2019-06-12] MEDS: SODIUM CHLORIDE 0.45% 1,000 ML IV SCH ×4 (06:11→21:04)
[2019-06-12 07:53] LABS: BASO % 1.1 % (0-2.0); EOS % 1.2 % (0-4.5); HEMATOCRIT 30.4 % (32.4-45.2); HEMOGLOBIN 10.5 GM/dL (10.7-15.3); LYMPH % 22.6 % (8-40); MCH 31.8 pg (25.7-33.7); MCHC 34.4 g/dl (32.0-36.0); MEAN CELL VOLUME 92.6 fl (80-96); MEAN PLT VOLUME 7.8 fl (7.5-11.1); MONO % 7.8 % (3.8-10.2); NEUT % 67.3 % (42.8-82.8); PLATELET COUNT 171 K/MM3 (134-434); RBC 3.29 M/mm3 (3.60-5.2); WHITE BLOOD COUNT 5.1 K/mm3 (4.0-10.0)
[2019-06-12 08:00] LABS: ANION GAP 7 MMOL/L (8-16); BLOOD UREA NITROGEN 13.4 mg/dL (7-18); CALCIUM 8.2 mg/dL (8.5-10.1); CHLORIDE 108 mmol/L (98-107); CO2 28 mmol/L (21-32); GLUCOSE,RANDOM 88 mg/dL (74-106); POTASSIUM 3.6 mmol/L (3.5-5.1); SODIUM 143 mmol/L (136-145)
[2019-06-12] MEDS: LOSARTAN 50MG/HCTZ 12.5MG 1 TAB (FP) PO SCH (10:05)
[2019-06-12] MEDS: MEMANTINE HCL 10 MG TABLET (FP) PO SCH ×2 (10:05→21:02)
[2019-06-12] MEDS: DONEPEZIL HCL 5 MG TABLET (FP) PO SCH (10:05)
[2019-06-12] MEDS ORDERED: SODIUM CHLORIDE 0.45% 1,000 ML IV SCH (12:59)
[2019-06-12] MEDS ORDERED: DEXTROSE 5%-WATER - 50 ML IVPB ONE (15:04)
[2019-06-12] MEDS ORDERED: cefTRIAXone SODIUM 1 GM VIAL ONE (15:04)
[2019-06-12] MEDS: CEFTRIAXONE 1 GM in DEXTROSE 5%-WATER - 50 ML IVPB SCH (15:08)
[2019-06-12] MEDS: LORazepam 0.5 MG TABLET PO PRN (21:03)
[2019-06-13] MEDS: SODIUM CHLORIDE 0.45% 1,000 ML IV SCH ×3 (06:34→23:12)
--- NOTE | 2019-06-13 08:14 | PN ---
Progress Note (short form) - Note Progress Note: patient seen and examined in bed daughter at bedside hospital course discussed reports patient "better " today Vital Signs Period Temp Pulse Resp BP Sys/Chambers Pulse Ox Last 24 Hr 97.9 F-98.6 F 64-88 18-18 142-160/70-88 97-99 awake alert /confused neck supple heart S1/S2 regular lungs clear bilat abdomen Soft non tender ext no edema CBC, BMP 06/12/19 06:41 06/12/19 06:41 Microbiology 06/10/19 12:50 Urine - Urine Clean Catch Urine Culture - Final Escherichia Coli Active Medications Acetaminophen (Tylenol -) 650 mg PO Q6H PRN PRN Reason: FEVER Last Admin: 06/11/19 23:04 Dose: 650 mg Donepezil HCl (Aricept -) 10 mg PO DAILY [facility] Last Admin: 06/12/19 10:05 Dose: 10 mg HCTZ/Losartan Potassium (Hyzaar -) 1 tab PO DAILY [facility] Last Admin: 06/12/19 10:05 Dose: 1 tab Sodium Chloride (1/2 Normal Saline) 1,000 mls @ 150 mls/hr IV ASDIR [facility] Last Admin: 06/13/19 06:34 Dose: 150 mls/hr Ceftriaxone Sodium 1 gm/ (Dextrose) 50 mls @ 100 mls/hr IVPB DAILY [facility]; Protocol Last Admin: 06/12/19 15:08 Dose: 100 mls/hr Lorazepam (Ativan -) 0.5 mg PO BID PRN PRN Reason: ANXIETY Last Admin: 06/12/19 21:03 Dose: 0.5 mg Memantine (Namenda -) 10 mg PO BID [facility] Last Admin: 06/12/19 21:02 Dose: 10 mg #S/p unwitnessed fall - CT scan head neg - Cervical spine CT neg - Lt shoulder xray neg - Lt Knee xray neg - Lt hip/ pevis xray neg - PT eval # Rhabdo - Iv fuids observe for floud overload - lasix as needed - trend CK #Dementia - cont Aricept and Namenda - Agitated at night- Ativan PRN - UA neg, C& S pending - Chest ray neg for acute pathology # BP fluctuates Cont home med # New onset intentional tremor now resolved Neuro consult reviewed andappreciated Problem List - Problems (1) Rhabdomyolysis Code(s): M62.82 - RHABDOMYOLYSIS Qualifiers: Rhabdomyolysis type: traumatic Encounter type: initial encounter Qualified Code(s): T79.6XXA - Traumatic ischemia of muscle, initial encounter (2) Dementia Code(s): F03.90 - UNSPECIFIED DEMENTIA WITHOUT BEHAVIORAL DISTURBANCE Qualifiers: Dementia type: unspecified type Dementia behavioral disturbance: without behavioral disturbance Qualified Code(s): F03.90 - Unspecified dementia without behavioral disturbance (3) HTN (hypertension) Code(s): I10 - ESSENTIAL (PRIMARY) HYPERTENSION Qualifiers: Hypertension type: essential hypertension Qualified Code(s): I10 - Essential (primary) hypertension (4) Lumbar disc herniation with radiculopathy Code(s): M51.16 - INTERVERTEBRAL DISC DISORDERS W RADICULOPATHY, LUMBAR REGION
[2019-06-13] MEDS ORDERED: DEXTROSE 5%-WATER - 50 ML IVPB ONE (09:41)
[2019-06-13] MEDS ORDERED: cefTRIAXone SODIUM 1 GM VIAL ONE (09:41)
[2019-06-13] MEDS: MEMANTINE HCL 10 MG TABLET (FP) PO SCH ×3 (10:07→23:11)
[2019-06-13] MEDS: LOSARTAN 50MG/HCTZ 12.5MG 1 TAB (FP) PO SCH (10:07)
[2019-06-13] MEDS: DONEPEZIL HCL 5 MG TABLET (FP) PO SCH (10:07)
[2019-06-13] MEDS: CEFTRIAXONE 1 GM in DEXTROSE 5%-WATER - 50 ML IVPB SCH (10:08)
[2019-06-13 10:50] LABS: BLOOD UREA NITROGEN 9.6 mg/dL (7-18); CALCIUM 8.4 mg/dL (8.5-10.1); CREATININE 0.9 mg/dL (0.55-1.3); POTASSIUM 3.4 mmol/L (3.5-5.1)
--- NOTE | 2019-06-13 14:00 | PN ---
Progress Note (short form) - Note Progress Note: patient seen and examined in bed daughter at bedside hospital course discussed reports patient "better " today / more cooperative Vital Signs Period Temp Pulse Resp BP Sys/Chambers Pulse Ox Last 24 Hr 97.9 F-98.6 F 64-88 18-18 142-160/70-88 97-99 awake alert /confused neck supple heart S1/S2 regular lungs clear bilat abdomen Soft non tender ext no edema CBC, BMP 06/12/19 06:41 06/13/19 09:33 CK inc to 1760 CBC, BMP 06/12/19 06:41 06/12/19 06:41 Microbiology 06/10/19 12:50 Urine - Urine Clean Catch Urine Culture - Final Escherichia Coli Active Medications Acetaminophen (Tylenol -) 650 mg PO Q6H PRN PRN Reason: FEVER Last Admin: 06/11/19 23:04 Dose: 650 mg Donepezil HCl (Aricept -) 10 mg PO DAILY [facility] Last Admin: 06/12/19 10:05 Dose: 10 mg HCTZ/Losartan Potassium (Hyzaar -) 1 tab PO DAILY [facility] Last Admin: 06/12/19 10:05 Dose: 1 tab Sodium Chloride (1/2 Normal Saline) 1,000 mls @ 150 mls/hr IV ASDIR [facility] Last Admin: 06/13/19 06:34 Dose: 150 mls/hr Ceftriaxone Sodium 1 gm/ (Dextrose) 50 mls @ 100 mls/hr IVPB DAILY [facility]; Protocol Last Admin: 06/12/19 15:08 Dose: 100 mls/hr Lorazepam (Ativan -) 0.5 mg PO BID PRN PRN Reason: ANXIETY Last Admin: 06/12/19 21:03 Dose: 0.5 mg Memantine (Namenda -) 10 mg PO BID [facility] Last Admin: 06/12/19 21:02 Dose: 10 mg #S/p unwitnessed fall - CT scan head neg - Cervical spine CT neg - Lt shoulder xray neg - Lt Knee xray neg - Lt hip/ pevis xray neg - PT eval # Rhabdo - inc in CK - increase Iv fuids observe for floud overload / inc to 250 cc/hr for 2 liters - lasix as needed - trend CK #Dementia - cont Aricept and Namenda - Agitated at night- Ativan PRN - UA neg, C& S pending - Chest ray neg for acute pathology # BP fluctuates Cont home med # New onset intentional tremor now resolved Neuro consult reviewed andappreciated Problem List - Problems (1) Rhabdomyolysis Code(s): M62.82 - RHABDOMYOLYSIS Qualifiers: Rhabdomyolysis type: traumatic Encounter type: initial encounter Qualified Code(s): T79.6XXA - Traumatic ischemia of muscle, initial encounter (2) Dementia Code(s): F03.90 - UNSPECIFIED DEMENTIA WITHOUT BEHAVIORAL DISTURBANCE Qualifiers: Dementia type: unspecified type Dementia behavioral disturbance: without behavioral disturbance Qualified Code(s): F03.90 - Unspecified dementia without behavioral disturbance (3) HTN (hypertension) Code(s): I10 - ESSENTIAL (PRIMARY) HYPERTENSION Qualifiers: Hypertension type: essential hypertension Qualified Code(s): I10 - Essential (primary) hypertension (4) Lumbar disc herniation with radiculopathy Code(s): M51.16 - INTERVERTEBRAL DISC DISORDERS W RADICULOPATHY, LUMBAR REGION
[2019-06-13] MEDS: POTASSIUM CHLORIDE TABS 20 MEQ TABLET.ER (FP) PO SCH (14:22)
[2019-06-13] MEDS ORDERED: SODIUM CHLORIDE 0.45% 1,000 ML IV ONE (18:30)
[2019-06-13] MEDS: LORazepam 0.5 MG TABLET PO PRN (23:11)
[2019-06-14] MEDS: SODIUM CHLORIDE 0.45% 1,000 ML IV SCH ×3 (07:01→22:40)
[2019-06-14 07:12] LABS: BASO % 0.8 % (0-2.0); EOS % 0.3 % (0-4.5); HEMATOCRIT 35.9 % (32.4-45.2); MCH 31.1 pg (25.7-33.7); MCHC 33.6 g/dl (32.0-36.0); MEAN CELL VOLUME 92.4 fl (80-96); MEAN PLT VOLUME 7.5 fl (7.5-11.1); MONO % 7.4 % (3.8-10.2); NEUT % 76.5 % (42.8-82.8); PLATELET COUNT 212 K/MM3 (134-434); RBC 3.88 M/mm3 (3.60-5.2); RDW 13.1 % (11.6-15.6); WHITE BLOOD COUNT 6.3 K/mm3 (4.0-10.0)
[2019-06-14 07:47] LABS: BLOOD UREA NITROGEN 9.3 mg/dL (7-18); CALCIUM 8.9 mg/dL (8.5-10.1); CREATININE 0.9 mg/dL (0.55-1.3); POTASSIUM 3.6 mmol/L (3.5-5.1)
[2019-06-14] MEDS ORDERED: DEXTROSE 5%-WATER - 50 ML IVPB ONE (08:44)
[2019-06-14] MEDS ORDERED: cefTRIAXone SODIUM 1 GM VIAL ONE (08:44)
--- NOTE | 2019-06-14 08:58 | PN ---
Progress Note (short form) - Note Progress Note: Neurology History of Present Illness: 86 y.o. female with a PMH of Alzheimer's Dementia, HTN and L5 radiculopathy, presenting s/p fall. Patient is poor historian secondary to Dementia, and patients daughter at bedside provided history. Patient presented found on the floor in the bathroom. Aid noted the patient was clinging to her bath curtains, complaining of neck and low back pain. Aid noted the patient was awake and conversational, but was nervous, confused, and unsure of what had happened ( patient cannot recall the event). Patient is oriented to place and person at baseline. She presents with bruising to the left shoulder and left knee, and endorses left hip pain while in the ED. The patient is not on aspirin, plavix, Coumadin, or any other blood thinners. Denied fever, chills, chest pain, SOB, palpitation, dizziness, N, V, D, abdominal pain, bladder and bowel problems, leg swelling, rash. No sick contacts or travel. No new changes in medications. No suspicious food intake. I was consulted as patient reportedly with tremor of the right upper extremity.. According to the daughter this was not present previously and possibly related to acute hospitalization. I discussed with them that there are medications available for tremor such as primidone 50 mg but at this point it may be better to just monitor and discussed the tremor continues as an outpatient taken follow-up in the office for further evaluation and management. The daughter was in agreement and wanted to pursue conservative measures. I did review the noncontrast head CT that was completed on admission and did not show any significant structural abnormalities. Over the weekend no significant neurological events, reviewed notes and patient was attempting to climb out of bed this morning, advised to stay in bed. Seen with nurse at bedside, still has tremor but slightly reduced appearing. - Allergies Allergies/Adverse Reactions: Allergies Allergy/AdvReac Type Severity Reaction Status Date / Time No Known Allergies Allergy Verified 06/10/19 09:55 Active Medications Acetaminophen (Tylenol -) 650 mg PO Q6H PRN PRN Reason: FEVER Last Admin: 06/11/19 23:04 Dose: 650 mg Donepezil HCl (Aricept -) 10 mg PO DAILY [facility]W Last Admin: 06/13/19 10:07 Dose: 10 mg HCTZ/Losartan Potassium (Hyzaar -) 1 tab PO DAILY [facility]W Last Admin: 06/13/19 10:07 Dose: 1 tab Ceftriaxone Sodium 1 gm/ (Dextrose) 50 mls @ 100 mls/hr IVPB DAILY [facility]THEW; Protocol Last Admin: 06/13/19 10:08 Dose: 100 mls/hr Sodium Chloride (1/2 Normal Saline) 1,000 mls @ 150 mls/hr IV ASDIR [facility] Last Admin: 06/14/19 07:01 Dose: 150 mls/hr Lorazepam (Ativan -) 0.5 mg PO BID PRN PRN Reason: ANXIETY Last Admin: 06/12/19 21:03 Dose: 0.5 mg Memantine (Namenda -) 10 mg PO BID [facility] Last Admin: 06/13/19 23:05 Dose: Not Given Potassium Chloride (K-Dur -) 40 meq PO DAILY [facility]W Last Admin: 06/13/19 14:22 Dose: 40 meq Physical Examination Vital Signs: Vital Signs Period Temp Pulse Resp BP Sys/Chambers Pulse Ox Last 24 Hr 98.0 F-98.6 F 76-103 16-20 148-192/78-98 96-97 Eyes: Yes: Conjunctiva Clear, EOM Intact HENT: Yes: Atraumatic, Normocephalic Neck: Yes: Supple, Trachea Midline Cardiovascular: Yes: Regular Rate and Rhythm Respiratory: Yes: CTA Bilaterally Gastrointestinal: Yes: Normal Bowel Sounds, Soft ...Rectal Exam: Yes: Deferred Renal/: Yes: WNL Breast(s): Yes: WNL Musculoskeletal: Yes: Back Pain, Muscle Weakness Extremities: Yes: WNL Peripheral Pulses WNL: Yes Neurological: CN intact, moves extremities symmetrically, bilateral. Sensory intact, mild intention tremor noted CBCD WBC 6.3 K/mm3 (4.0-10.0) 06/14/19 06:06 RBC 3.88 M/mm3 (3.60-5.2) 06/14/19 06:06 Hgb 12.0 GM/dL (10.7-15.3) 06/14/19 06:06 Hct 35.9 % (32.4-45.2) D 06/14/19 06:06 MCV 92.4 fl (80-96) 06/14/19 06:06 MCHC 33.6 g/dl (32.0-36.0) 06/14/19 06:06 RDW 13.1 % (11.6-15.6) 06/14/19 06:06 Plt Count 212 K/MM3 (134-434) D 06/14/19 06:06 MPV 7.5 fl (7.5-11.1) 06/14/19 06:06 CMP Sodium 144 mmol/L (136-145) 06/14/19 06:06 Potassium 3.6 mmol/L (3.5-5.1) 06/14/19 06:06 Chloride 110 mmol/L (98-107) H 06/14/19 06:06 Carbon Dioxide 28 mmol/L (21-32) 06/14/19 06:06 Anion Gap 7 MMOL/L (8-16) L 06/14/19 06:06 BUN 9.3 mg/dL (7-18) 06/14/19 06:06 Creatinine 0.9 mg/dL (0.55-1.3) 06/14/19 06:06 Random Glucose 98 mg/dL (74-106) 06/14/19 06:06 Calcium 8.9 mg/dL (8.5-10.1) 06/14/19 06:06 Total Bilirubin 1.0 mg/dL (0.2-1) 06/11/19 06:10 AST 65 U/L (15-37) H 06/11/19 06:10 ALT 38 U/L (13-61) 06/11/19 06:10 Alkaline Phosphatase 94 U/L (45-117) 06/11/19 06:10 Total Protein 6.5 g/dl (6.4-8.2) 06/11/19 06:10 Albumin 3.5 g/dl (3.4-5.0) 06/11/19 06:10 CARDIAC ENZYMES Creatine Kinase 1384 U/L (26-192) H 06/14/19 06:06 Troponin I 0.06 ng/ml (0.00-0.05) H 06/10/19 13:24 Plan: 86 y.o. female with a PMH of Alzheimer's Dementia, HTN and L5 radiculopathy, presenting s/p fall. Patient is poor historian secondary to Dementia, and patients daughter at bedside provided history. Patient presented found on the floor in the bathroom. Aid noted the patient was clinging to her bath curtains, complaining of neck and low back pain. Aid noted the patient was awake and conversational, but was nervous, confused, and unsure of what had happened ( patient cannot recall the event). Patient is oriented to place and person at baseline. She presents with bruising to the left shoulder and left knee, and endorses left hip pain while in the ED. The patient is not on aspirin, plavix, Coumadin, or any other blood thinners. Denied fever, chills, chest pain, SOB, palpitation, dizziness, N, V, D, abdominal pain, bladder and bowel problems, leg swelling, rash. No sick contacts or travel. No new changes in medications. No suspicious food intake. I was consulted as patient reportedly withtremor of the right upper extremity.. According to the daughter this was not present previously and possibly related to acute hospitalization. I discussed with them that there are medications available for tremor such as primidone 50 mg but at this point it may be better to just monitor and discussed the tremor continues as an outpatient taken follow-up in the office for further evaluation and management. The daughter was in agreement and wanted to pursue conservative measures. I did review the noncontrast head CT that was completed on admission and did not show any significant structural abnormalities. Over the weekend no significant neurological events, reviewed notes and patient was attempting to climb out of bed this morning, advised to stay in bed. Seen with nurse at bedside, still has tremor but slightly reduced appearing. Continue dementia medications consider psych evaluation if needed as patient's daughter reporting hallucinations. Fall precautions recommended, consider syncopal workup. Patient to follow-up in office if tremor continues after discharge.
[2019-06-14] MEDS: LORazepam 0.5 MG TABLET PO PRN ×2 (09:01→21:07)
[2019-06-14] MEDS: LOSARTAN 50MG/HCTZ 12.5MG 1 TAB (FP) PO SCH (09:01)
[2019-06-14] MEDS: POTASSIUM CHLORIDE TABS 20 MEQ TABLET.ER (FP) PO SCH (09:01)
[2019-06-14] MEDS: MEMANTINE HCL 10 MG TABLET (FP) PO SCH ×2 (09:01→21:07)
[2019-06-14] MEDS: CEFTRIAXONE 1 GM in DEXTROSE 5%-WATER - 50 ML IVPB SCH (09:01)
[2019-06-14] MEDS: DONEPEZIL HCL 5 MG TABLET (FP) PO SCH (09:01)
[2019-06-14] MEDS ORDERED: HALOPERIDOL LACTATE 5 MG/ML IM ONE (22:25)
[2019-06-15] MEDS: SODIUM CHLORIDE 0.45% 1,000 ML IV SCH ×3 (06:39→23:23)
[2019-06-15 06:47] LABS: EOS % 2.1 % (0-4.5); HEMATOCRIT 30.4 % (32.4-45.2); HEMOGLOBIN 10.6 GM/dL (10.7-15.3); LYMPH % 32.8 % (8-40); MCH 31.6 pg (25.7-33.7); MCHC 34.8 g/dl (32.0-36.0); MEAN PLT VOLUME 7.5 fl (7.5-11.1); MONO % 10.5 % (3.8-10.2); NEUT % 53.6 % (42.8-82.8); PLATELET COUNT 202 K/MM3 (134-434); RBC 3.34 M/mm3 (3.60-5.2); WHITE BLOOD COUNT 4.5 K/mm3 (4.0-10.0)
[2019-06-15 07:11] LABS: CALCIUM 8.7 mg/dL (8.5-10.1); CREATININE 0.9 mg/dL (0.55-1.3); POTASSIUM 3.7 mmol/L (3.5-5.1)
--- NOTE | 2019-06-15 08:59 | PN ---
Progress Note (short form) - Note Progress Note: Neurology History of Present Illness: 86 y.o. female with a PMH of Alzheimer's Dementia, HTN and L5 radiculopathy, presenting s/p fall. Patient is poor historian secondary to Dementia, and patients daughter at bedside provided history. Patient presented found on the floor in the bathroom. Aid noted the patient was clinging to her bath curtains, complaining of neck and low back pain. Aid noted the patient was awake and conversational, but was nervous, confused, and unsure of what had happened ( patient cannot recall the event). Patient is oriented to place and person at baseline. She presents with bruising to the left shoulder and left knee, and endorses left hip pain while in the ED. The patient is not on aspirin, plavix, Coumadin, or any other blood thinners. Denied fever, chills, chest pain, SOB, palpitation, dizziness, N, V, D, abdominal pain, bladder and bowel problems, leg swelling, rash. No sick contacts or travel. No new changes in medications. No suspicious food intake. I was consulted as patient reportedly with tremor of the right upper extremity.. According to the daughter this was not present previously and possibly related to acute hospitalization. I discussed with them that there are medications available for tremor such as primidone 50 mg but at this point it may be better to just monitor and discussed the tremor continues as an outpatient taken follow-up in the office for further evaluation and management. The daughter was in agreement and wanted to pursue conservative measures. INoncontrast head CT that was completed on admission and did not show any significant structural abnormalities. This AM, more calm and relaxed appearing. Receiving Ceftriaxone, IV, at bedside and not pulling at lines or aggitated. Active Medications Acetaminophen (Tylenol -) 650 mg PO Q6H PRN PRN Reason: FEVER Last Admin: 06/11/19 23:04 Dose: 650 mg Donepezil HCl (Aricept -) 10 mg PO DAILY MATTHEW Last Admin: 06/14/19 09: Dose: 10 mg HCTZ/Losartan Potassium (Hyzaar -) 1 tab PO DAILY MATTHEW Last Admin: 06/14/19 09: Dose: 1 tab Ceftriaxone Sodium 1 gm/ (Dextrose) 50 mls @ 100 mls/hr IVPB DAILY MATTHEW; Protocol Last Admin: 06/14/19 09:01 Dose: 100 mls/hr Sodium Chloride (1/2 Normal Saline) 1,000 mls @ 150 mls/hr IV ASDIR [facility] Last Admin: 06/15/19 06:39 Dose: 150 mls/hr Lorazepam (Ativan -) 0.5 mg PO BID PRN PRN Reason: ANXIETY Last Admin: 06/14/19 21:07 Dose: 0.5 mg Memantine (Namenda -) 10 mg PO BID [facility] Last Admin: 06/14/19 21:07 Dose: 10 mg Potassium Chloride (K-Dur -) 40 meq PO DAILY [facility] Last Admin: 06/14/19 09:01 Dose: 40 meq Physical Examination Vital Signs: Vital Signs Period Temp Pulse Resp BP Sys/Chambers Pulse Ox Last 24 Hr 97.5 F-99.3 F 73-107 16-18 141-157/68-98 97 Eyes: Yes: Conjunctiva Clear, EOM Intact HENT: Yes: Atraumatic, Normocephalic Neck: Yes: Supple, Trachea Midline Cardiovascular: Yes: Regular Rate and Rhythm Respiratory: Yes: CTA Bilaterally Gastrointestinal: Yes: Normal Bowel Sounds, Soft ...Rectal Exam: Yes: Deferred Renal/: Yes: WNL Breast(s): Yes: WNL Musculoskeletal: Yes: Back Pain, Muscle Weakness Extremities: Yes: WNL Peripheral Pulses WNL: Yes Neurological: CN intact, moves extremities symmetrically, bilateral. Sensory intact, mild intention tremor noted CBCD WBC 4.5 K/mm3 (4.0-10.0) 06/15/19 05:58 RBC 3.34 M/mm3 (3.60-5.2) L 06/15/19 05:58 Hgb 10.6 GM/dL (10.7-15.3) L 06/15/19 05:58 Hct 30.4 % (32.4-45.2) L D 06/15/19 05:58 MCV 91.0 fl (80-96) 06/15/19 05:58 MCHC 34.8 g/dl (32.0-36.0) 06/15/19 05:58 RDW 13.0 % (11.6-15.6) 06/15/19 05:58 Plt Count 202 K/MM3 (134-434) 06/15/19 05:58 MPV 7.5 fl (7.5-11.1) 06/15/19 05:58 CMP Sodium 145 mmol/L (136-145) 06/15/19 05:58 Potassium 3.7 mmol/L (3.5-5.1) 06/15/19 05:58 Chloride 111 mmol/L (98-107) H 06/15/19 05:58 Carbon Dioxide 27 mmol/L (21-32) 06/15/19 05:58 Anion Gap 7 MMOL/L (8-16) L 06/15/19 05:58 BUN 9.0 mg/dL (7-18) 06/15/19 05:58 Creatinine 0.9 mg/dL (0.55-1.3) 06/15/19 05:58 Random Glucose 82 mg/dL (74-106) 06/15/19 05:58 Calcium 8.7 mg/dL (8.5-10.1) 06/15/19 05:58 Total Bilirubin 1.0 mg/dL (0.2-1) 06/11/19 06:10 AST 65 U/L (15-37) H 06/11/19 06:10 ALT 38 U/L (13-61) 06/11/19 06:10 Alkaline Phosphatase 94 U/L (45-117) 06/11/19 06:10 Total Protein 6.5 g/dl (6.4-8.2) 06/11/19 06:10 Albumin 3.5 g/dl (3.4-5.0) 06/11/19 06:10 CARDIAC ENZYMES Creatine Kinase 635 U/L (26-192) H 06/15/19 05:58 Troponin I 0.06 ng/ml (0.00-0.05) H 06/10/19 13:24 Plan: 86 y.o. female with a PMH of Alzheimer's Dementia, HTN and L5 radiculopathy, presenting s/p fall. Patient is poor historian secondary to Dementia, and patients daughter at bedside provided history. Patient presented found on the floor in the bathroom. Aid noted the patient was clinging to her bath curtains, complaining of neck and low back pain. Aid noted the patient was awake and conversational, but was nervous, confused, and unsure of what had happened ( patient cannot recall the event). Patient is oriented to place and person at baseline. She presents with bruising to the left shoulder and left knee, and endorses left hip pain while in the ED. The patient is not on aspirin, plavix, Coumadin, or any other blood thinners. Denied fever, chills, chest pain, SOB, palpitation, dizziness, N, V, D, abdominal pain, bladder and bowel problems, leg swelling, rash. No sick contacts or travel. No new changes in medications. No suspicious food intake. I was consulted as patient reportedly withtremor of the right upper extremity.. According to the daughter this was not present previously and possibly related to acute hospitalization. I discussed with them that there are medications available for tremor such as primidone 50 mg but at this point it may be better to just monitor and discussed the tremor continues as an outpatient taken follow-up in the office for further evaluation and management. The daughter was in agreement and wanted to pursue conservative measures. Noncontrast head CT that was completed on admission and did not show any significant structural abnormalities. More calm now, possibly effect of IV Abx treating underlying infection. Continue dementia medications consider psych evaluation if needed for hallucinations. Fall precautions recommended, maintain adequate hydration. Patient to follow-up in office if tremor continues after discharge.
[2019-06-15] MEDS ORDERED: DEXTROSE 5%-WATER - 50 ML IVPB ONE (11:06)
[2019-06-15] MEDS ORDERED: cefTRIAXone SODIUM 1 GM VIAL ONE (11:06)
[2019-06-15] MEDS: CEFTRIAXONE 1 GM in DEXTROSE 5%-WATER - 50 ML IVPB SCH (12:08)
[2019-06-15] MEDS: DONEPEZIL HCL 5 MG TABLET (FP) PO SCH (12:09)
[2019-06-15] MEDS: MEMANTINE HCL 10 MG TABLET (FP) PO SCH ×2 (12:10→21:01)
[2019-06-15] MEDS: POTASSIUM CHLORIDE TABS 20 MEQ TABLET.ER (FP) PO SCH (12:10)
[2019-06-15] MEDS: LOSARTAN 50MG/HCTZ 12.5MG 1 TAB (FP) PO SCH (12:10)
--- NOTE | 2019-06-15 12:49 | PN ---
Progress Note (short form) - Note Progress Note: patient seen and examined in bed drowsy required Haldol last night for agitation /aggressive behavior Vital Signs Period Temp Pulse Resp BP Sys/Chambers Pulse Ox Last 24 Hr 97.5 F-99.3 F 73-107 16-18 139-157/68-94 97 drowsy /confused will follow commands neck supple heart S1/S2 regular lungs clear bilat ant and laterally abdomen Soft non tender ext no edema CBC, BMP 06/15/19 05:58 06/15/19 05:58 ck --635 CBC, BMP 06/12/19 06:41 06/13/19 09:33 CK inc to 1760 CBC, BMP 06/12/19 06:41 06/12/19 06:41 Microbiology 06/10/19 12:50 Urine - Urine Clean Catch Urine Culture - Final Escherichia Coli Active Medications Acetaminophen (Tylenol -) 650 mg PO Q6H PRN PRN Reason: FEVER Last Admin: 06/11/19 23:04 Dose: 650 mg Donepezil HCl (Aricept -) 10 mg PO DAILY MATTHEW Last Admin: 06/12/19 10:05 Dose: 10 mg HCTZ/Losartan Potassium (Hyzaar -) 1 tab PO DAILY MATTHEW Last Admin: 06/12/19 10:05 Dose: 1 tab Sodium Chloride (1/2 Normal Saline) 1,000 mls @ 150 mls/hr IV ASDIR [facility] Last Admin: 06/13/19 06:34 Dose: 150 mls/hr Ceftriaxone Sodium 1 gm/ (Dextrose) 50 mls @ 100 mls/hr IVPB DAILY MATTHEW; Protocol Last Admin: 06/12/19 15:08 Dose: 100 mls/hr Lorazepam (Ativan -) 0.5 mg PO BID PRN PRN Reason: ANXIETY Last Admin: 06/12/19 21:03 Dose: 0.5 mg Memantine (Namenda -) 10 mg PO BID [facility]W Last Admin: 06/12/19 21:02 Dose: 10 mg # UTI E. Coli sens to rochepin improved mental status # metabolic encephalopathy improved on ABX #S/p unwitnessed fall - CT scan head neg - Cervical spine CT neg - Lt shoulder xray neg - Lt Knee xray neg - Lt hip/ pevis xray neg - PT eval # Rhabdo - CK trending down - Iv fuids observe for floud overload - lasix as needed - continue to trend CK #Dementia - cont Aricept and Namenda - Agitated at night- Ativan PRN / required Haldol - Chest ray neg for acute pathology # BP fluctuates Cont home med # New onset intentional tremor now resolved Neuro consult reviewed and appreciated Problem List - Problems (1) Rhabdomyolysis Code(s): M62.82 - RHABDOMYOLYSIS Qualifiers: Rhabdomyolysis type: traumatic Encounter type: initial encounter Qualified Code(s): T79.6XXA - Traumatic ischemia of muscle, initial encounter (2) Dementia Code(s): F03.90 - UNSPECIFIED DEMENTIA WITHOUT BEHAVIORAL DISTURBANCE Qualifiers: Dementia type: unspecified type Dementia behavioral disturbance: without behavioral disturbance Qualified Code(s): F03.90 - Unspecified dementia without behavioral disturbance (3) HTN (hypertension) Code(s): I10 - ESSENTIAL (PRIMARY) HYPERTENSION Qualifiers: Hypertension type: essential hypertension Qualified Code(s): I10 - Essential (primary) hypertension (4) Lumbar disc herniation with radiculopathy Code(s): M51.16 - INTERVERTEBRAL DISC DISORDERS W RADICULOPATHY, LUMBAR REGION
[2019-06-16 06:58] LABS: BASO % 1.2 % (0-2.0); EOS % 1.6 % (0-4.5); HEMATOCRIT 29.6 % (32.4-45.2); HEMOGLOBIN 10.3 GM/dL (10.7-15.3); LYMPH % 24.5 % (8-40); MCH 32.1 pg (25.7-33.7); MCHC 34.9 g/dl (32.0-36.0); MEAN CELL VOLUME 91.8 fl (80-96); MEAN PLT VOLUME 7.4 fl (7.5-11.1); MONO % 11.4 % (3.8-10.2); NEUT % 61.3 % (42.8-82.8); PLATELET COUNT 196 K/MM3 (134-434); RBC 3.22 M/mm3 (3.60-5.2); RDW 13.2 % (11.6-15.6); WHITE BLOOD COUNT 3.6 K/mm3 (4.0-10.0)
[2019-06-16 07:31] LABS: BLOOD UREA NITROGEN 8.6 mg/dL (7-18); CALCIUM 8.6 mg/dL (8.5-10.1); POTASSIUM 3.7 mmol/L (3.5-5.1)
--- NOTE | 2019-06-16 09:06 | PN ---
Progress Note (short form) - Note Progress Note: Neurology History of Present Illness: 86 y.o. female with a PMH of Alzheimer's Dementia, HTN and L5 radiculopathy, presenting s/p fall. Patient is poor historian secondary to Dementia, and patients daughter at bedside provided history. Patient presented found on the floor in the bathroom. Aid noted the patient was clinging to her bath curtains, complaining of neck and low back pain. Aid noted the patient was awake and conversational, but was nervous, confused, and unsure of what had happened ( patient cannot recall the event). Patient is oriented to place and person at baseline. She presents with bruising to the left shoulder and left knee, and endorses left hip pain while in the ED. The patient is not on aspirin, plavix, Coumadin, or any other blood thinners. Denied fever, chills, chest pain, SOB, palpitation, dizziness, N, V, D, abdominal pain, bladder and bowel problems, leg swelling, rash. No sick contacts or travel. No new changes in medications. No suspicious food intake. I was consulted as patient reportedly with tremor of the right upper extremity.. According to the daughter this was not present previously and possibly related to acute hospitalization. I discussed with them that there are medications available for tremor such as primidone 50 mg but at this point it may be better to just monitor and discussed the tremor continues as an outpatient taken follow-up in the office for further evaluation and management. The daughter was in agreement and wanted to pursue conservative measures. Noncontrast head CT that was completed on admission and did not show any significant structural abnormalities. This AM, appears to be at or near baseline and very calm and relaxed. Receiving Ceftriaxone, IV, at bedside and not pulling at lines or aggitated. Possible improvement secondary to IV antibiotics, mental status seems to be near baseline. Active Medications Acetaminophen (Tylenol -) 650 mg PO Q6H PRN PRN Reason: FEVER Last Admin: 06/11/19 23:04 Dose: 650 mg Donepezil HCl (Aricept -) 10 mg PO DAILY [facility]W Last Admin: 06/15/19 12:09 Dose: 10 mg HCTZ/Losartan Potassium (Hyzaar -) 1 tab PO DAILY [facility]W Last Admin: 06/15/19 12:10 Dose: 1 tab Ceftriaxone Sodium 1 gm/ (Dextrose) 50 mls @ 100 mls/hr IVPB DAILY [facility]THEW; Protocol Last Admin: 06/15/19 12:08 Dose: 100 mls/hr Sodium Chloride (1/2 Normal Saline) 1,000 mls @ 150 mls/hr IV ASDIR [facility] Last Admin: 06/15/19 23:23 Dose: 150 mls/hr Lorazepam (Ativan -) 0.5 mg PO BID PRN PRN Reason: ANXIETY Last Admin: 06/14/19 21:07 Dose: 0.5 mg Memantine (Namenda -) 10 mg PO BID [facility]W Last Admin: 06/15/19 21:01 Dose: 10 mg Potassium Chloride (K-Dur -) 40 meq PO DAILY [facility]W Last Admin: 06/15/19 12:10 Dose: 40 meq Physical Examination Vital Signs: Vital Signs Period Temp Pulse Resp BP Sys/Chambers Pulse Ox Last 24 Hr 98.3 F-98.9 F 70-83 16-18 139-156/72-82 96-96 Eyes: Yes: Conjunctiva Clear, EOM Intact HENT: Yes: Atraumatic, Normocephalic Neck: Yes: Supple, Trachea Midline Cardiovascular: Yes: Regular Rate and Rhythm Respiratory: Yes: CTA Bilaterally Gastrointestinal: Yes: Normal Bowel Sounds, Soft ...Rectal Exam: Yes: Deferred Renal/: Yes: WNL Breast(s): Yes: WNL Musculoskeletal: Yes: Back Pain, Muscle Weakness Extremities: Yes: WNL Peripheral Pulses WNL: Yes Neurological: CN intact, moves extremities symmetrically, bilateral. Sensory intact, mild intention tremor noted CBCD WBC 3.6 K/mm3 (4.0-10.0) L 06/16/19 05:55 RBC 3.22 M/mm3 (3.60-5.2) L 06/16/19 05:55 Hgb 10.3 GM/dL (10.7-15.3) L 06/16/19 05:55 Hct 29.6 % (32.4-45.2) L 06/16/19 05:55 MCV 91.8 fl (80-96) 06/16/19 05:55 MCHC 34.9 g/dl (32.0-36.0) 06/16/19 05:55 RDW 13.2 % (11.6-15.6) 06/16/19 05:55 Plt Count 196 K/MM3 (134-434) 06/16/19 05:55 MPV 7.4 fl (7.5-11.1) L 06/16/19 05:55 CMP Sodium 143 mmol/L (136-145) 06/16/19 05:55 Potassium 3.7 mmol/L (3.5-5.1) 06/16/19 05:55 Chloride 110 mmol/L (98-107) H 06/16/19 05:55 Carbon Dioxide 28 mmol/L (21-32) 06/16/19 05:55 Anion Gap 5 MMOL/L (8-16) L 06/16/19 05:55 BUN 8.6 mg/dL (7-18) 06/16/19 05:55 Creatinine 1.0 mg/dL (0.55-1.3) 06/16/19 05:55 Random Glucose 80 mg/dL (74-106) 06/16/19 05:55 Calcium 8.6 mg/dL (8.5-10.1) 06/16/19 05:55 Total Bilirubin 1.0 mg/dL (0.2-1) 06/11/19 06:10 AST 65 U/L (15-37) H 06/11/19 06:10 ALT 38 U/L (13-61) 06/11/19 06:10 Alkaline Phosphatase 94 U/L (45-117) 06/11/19 06:10 Total Protein 6.5 g/dl (6.4-8.2) 06/11/19 06:10 Albumin 3.5 g/dl (3.4-5.0) 06/11/19 06:10 CARDIAC ENZYMES Creatine Kinase 273 U/L (26-192) H 06/16/19 05:55 Troponin I 0.06 ng/ml (0.00-0.05) H 06/10/19 13:24 Plan: 86 y.o. female with a PMH of Alzheimer's Dementia, HTN and L5 radiculopathy, presenting s/p fall. Patient is poor historian secondary to Dementia, and patients daughter at bedside provided history. Patient presented found on the floor in the bathroom. Aid noted the patient was clinging to her bath curtains, complaining of neck and low back pain. Aid noted the patient was awake and conversational, but was nervous, confused, and unsure of what had happened ( patient cannot recall the event). Patient is oriented to place and person at baseline. She presents with bruising to the left shoulder and left knee, and endorses left hip pain while in the ED. The patient is not on aspirin, plavix, Coumadin, or any other blood thinners. Denied fever, chills, chest pain, SOB, palpitation, dizziness, N, V, D, abdominal pain, bladder and bowel problems, leg swelling, rash. No sick contacts or travel. No new changes in medications. No suspicious food intake. I was consulted as patient reportedly withtremor of the right upper extremity.. According to the daughter this was not present previously and possibly related to acute hospitalization. I discussed with them that there are medications available for tremor such as primidone 50 mg but at this point it may be better to just monitor and discussed the tremor continues as an outpatient taken follow-up in the office for further evaluation and management. The daughter was in agreement and wanted to pursue conservative measures. Noncontrast head CT that was completed on admission and did not show any significant structural abnormalities. This AM, appears to be at or near baseline and very calm and relaxed. Receiving Ceftriaxone, IV, at bedside and not pulling at lines or aggitated. Possible improvement secondary to IV antibiotics, mental status seems to be near baseline. . Continue dementia medications consider psych evaluation if needed for hallucinations. Fall precautions recommended, maintain adequate hydration. Patient to follow-up in office if tremor continues after discharge.
[2019-06-16] MEDS ORDERED: DEXTROSE 5%-WATER - 50 ML IVPB ONE (09:07)
[2019-06-16] MEDS ORDERED: cefTRIAXone SODIUM 1 GM VIAL ONE (09:07)
[2019-06-16] MEDS: SODIUM CHLORIDE 0.45% 1,000 ML IV SCH (09:48)
[2019-06-16] MEDS: CEFTRIAXONE 1 GM in DEXTROSE 5%-WATER - 50 ML IVPB SCH (09:48)
[2019-06-16] MEDS: LOSARTAN 50MG/HCTZ 12.5MG 1 TAB (FP) PO SCH (09:49)
[2019-06-16] MEDS: LORazepam 0.5 MG TABLET PO PRN ×2 (09:49→23:19)
[2019-06-16] MEDS: DONEPEZIL HCL 5 MG TABLET (FP) PO SCH (09:49)
[2019-06-16] MEDS: MEMANTINE HCL 10 MG TABLET (FP) PO SCH ×2 (09:49→22:05)
[2019-06-16] MEDS: POTASSIUM CHLORIDE TABS 20 MEQ TABLET.ER (FP) PO SCH ×2 (09:49→23:30)
[2019-06-16] MEDS ORDERED: FUROSEMIDE 40 MG/4 ML INJECTABLE VIAL IVPUSH ONE (15:00)
--- NOTE | 2019-06-16 22:25 | PN ---
Progress Note (short form) - Note Progress Note: patient seen and examined in bed awake appear comfortable Cooperative with exam confused Vital Signs Period Temp Pulse Resp BP Sys/Chambers Pulse Ox Last 24 Hr 97.7 F-98.8 F 77-88 16-18 144-184/72-90 96-96 required lasix earlier today for elevated Bp confused will follow commands neck supple heart S1/S2 regular lungs clear bilat ant and laterally abdomen Soft non tender ext no edema CBC, BMP 06/16/19 05:55 06/16/19 05:55 CK --273 CBC, BMP 06/15/19 05:58 06/15/19 05:58 ck --635 CBC, BMP 06/12/19 06:41 06/13/19 09:33 CK inc to 1760 CBC, BMP 06/12/19 06:41 06/12/19 06:41 Microbiology 06/10/19 12:50 Urine - Urine Clean Catch Urine Culture - Final Escherichia Coli Active Medications Acetaminophen (Tylenol -) 650 mg PO Q6H PRN PRN Reason: FEVER Last Admin: 06/11/19 23:04 Dose: 650 mg Donepezil HCl (Aricept -) 10 mg PO DAILY [facility] Last Admin: 06/12/19 10:05 Dose: 10 mg HCTZ/Losartan Potassium (Hyzaar -) 1 tab PO DAILY [facility] Last Admin: 06/12/19 10:05 Dose: 1 tab Sodium Chloride (1/2 Normal Saline) 1,000 mls @ 150 mls/hr IV ASDIR [facility]THEW Last Admin: 06/13/19 06:34 Dose: 150 mls/hr Ceftriaxone Sodium 1 gm/ (Dextrose) 50 mls @ 100 mls/hr IVPB DAILY [facility]; Protocol Last Admin: 06/12/19 15:08 Dose: 100 mls/hr Lorazepam (Ativan -) 0.5 mg PO BID PRN PRN Reason: ANXIETY Last Admin: 06/12/19 21:03 Dose: 0.5 mg Memantine (Namenda -) 10 mg PO BID [facility] Last Admin: 06/12/19 21:02 Dose: 10 mg # Rhabdo - CK trending down - Iv fuids observe for fluid overload - lasix as needed - continue to trend CK - will taper IV fluids - replace K as needed # UTI E. Coli sens to rochepin improved mental status # metabolic encephalopathy improved on ABX #S/p unwitnessed fall - CT scan head neg - Cervical spine CT neg - Lt shoulder xray neg - Lt Knee xray neg - Lt hip/ pevis xray neg - PT eval #Dementia - cont Aricept and Namenda - Agitated at night- Ativan PRN / required Haldol - Chest ray neg for acute pathology # BP fluctuates Cont home med # New onset intentional tremor now resolved Neuro consult reviewed and appreciated Problem List - Problems (1) Rhabdomyolysis Code(s): M62.82 - RHABDOMYOLYSIS Qualifiers: Rhabdomyolysis type: traumatic Encounter type: initial encounter Qualified Code(s): T79.6XXA - Traumatic ischemia of muscle, initial encounter (2) Dementia Code(s): F03.90 - UNSPECIFIED DEMENTIA WITHOUT BEHAVIORAL DISTURBANCE Qualifiers: Dementia type: unspecified type Dementia behavioral disturbance: without behavioral disturbance Qualified Code(s): F03.90 - Unspecified dementia without behavioral disturbance (3) HTN (hypertension) Code(s): I10 - ESSENTIAL (PRIMARY) HYPERTENSION Qualifiers: Hypertension type: essential hypertension Qualified Code(s): I10 - Essential (primary) hypertension (4) Lumbar disc herniation with radiculopathy Code(s): M51.16 - INTERVERTEBRAL DISC DISORDERS W RADICULOPATHY, LUMBAR REGION
--- NOTE | 2019-06-17 09:24 | PN ---
Progress Note (short form) - Note Progress Note: Neurology History of Present Illness: 86 y.o. female with a PMH of Alzheimer's Dementia, HTN and L5 radiculopathy, presenting s/p fall. Patient is poor historian secondary to Dementia, and patients daughter at bedside provided history. Patient presented found on the floor in the bathroom. Aid noted the patient was clinging to her bath curtains, complaining of neck and low back pain. Aid noted the patient was awake and conversational, but was nervous, confused, and unsure of what had happened ( patient cannot recall the event). Patient is oriented to place and person at baseline. She presents with bruising to the left shoulder and left knee, and endorses left hip pain while in the ED. The patient is not on aspirin, plavix, Coumadin, or any other blood thinners. Denied fever, chills, chest pain, SOB, palpitation, dizziness, N, V, D, abdominal pain, bladder and bowel problems, leg swelling, rash. No sick contacts or travel. No new changes in medications. No suspicious food intake. I was consulted as patient reportedly with tremor of the right upper extremity.. According to the daughter this was not present previously and possibly related to acute hospitalization. I discussed with them that there are medications available for tremor such as primidone 50 mg but at this point it may be better to just monitor and discussed the tremor continues as an outpatient taken follow-up in the office for further evaluation and management. The daughter was in agreement and wanted to pursue conservative measures. Noncontrast head CT that was completed on admission and did not show any significant structural abnormalities. This AM, appears to be at or near baseline and very calm and relaxed. Receiving Ceftriaxone, IV, at bedside and much more calm and relaxed, knows that she is in the hospital but cannot come me the exact name. Possible improvement secondary to IV antibiotics , mental status seems to be near baseline. Active Medications Acetaminophen (Tylenol -) 650 mg PO Q6H PRN PRN Reason: FEVER Last Admin: 06/11/19 23:04 Dose: 650 mg Donepezil HCl (Aricept -) 10 mg PO DAILY [facility] Last Admin: 06/16/19 09:49 Dose: 10 mg HCTZ/Losartan Potassium (Hyzaar -) 1 tab PO DAILY [facility] Last Admin: 06/16/19 09:49 Dose: 1 tab Ceftriaxone Sodium 1 gm/ (Dextrose) 50 mls @ 100 mls/hr IVPB DAILY [facility]; Protocol Last Admin: 06/16/19 09:48 Dose: 100 mls/hr Sodium Chloride (1/2 Normal Saline) 1,000 mls @ 150 mls/hr IV ASDIR [facility]THEW Last Admin: 06/16/19 09:48 Dose: 150 mls/hr Lorazepam (Ativan -) 0.5 mg PO BID PRN PRN Reason: ANXIETY Last Admin: 06/16/19 23:19 Dose: 0.5 mg Memantine (Namenda -) 10 mg PO BID [facility] Last Admin: 06/16/19 22:05 Dose: 10 mg Potassium Chloride (K-Dur -) 40 meq PO DAILY [facility] Last Admin: 06/16/19 09:49 Dose: 40 meq Potassium Chloride (K-Dur -) 40 meq PO DAILY [facility] Last Admin: 06/16/19 23:30 Dose: Not Given Physical Examination Vital Signs: Vital Signs Period Temp Pulse Resp BP Sys/Chambers Pulse Ox Last 24 Hr 97.7 F-98.8 F 78-108 16-18 145-190/75-90 96 Eyes: Yes: Conjunctiva Clear, EOM Intact HENT: Yes: Atraumatic, Normocephalic Neck: Yes: Supple, Trachea Midline Cardiovascular: Yes: Regular Rate and Rhythm Respiratory: Yes: CTA Bilaterally Gastrointestinal: Yes: Normal Bowel Sounds, Soft ...Rectal Exam: Yes: Deferred Renal/: Yes: WNL Breast(s): Yes: WNL Musculoskeletal: Yes: Back Pain, Muscle Weakness Extremities: Yes: WNL Peripheral Pulses WNL: Yes Neurological: CN intact, moves extremities symmetrically, bilateral. Sensory intact, mild intention tremor noted CBCD WBC 3.6 K/mm3 (4.0-10.0) L 06/16/19 05:55 RBC 3.22 M/mm3 (3.60-5.2) L 06/16/19 05:55 Hgb 10.3 GM/dL (10.7-15.3) L 06/16/19 05:55 Hct 29.6 % (32.4-45.2) L 06/16/19 05:55 MCV 91.8 fl (80-96) 06/16/19 05:55 MCHC 34.9 g/dl (32.0-36.0) 06/16/19 05:55 RDW 13.2 % (11.6-15.6) 06/16/19 05:55 Plt Count 196 K/MM3 (134-434) 06/16/19 05:55 MPV 7.4 fl (7.5-11.1) L 06/16/19 05:55 CMP Sodium 143 mmol/L (136-145) 06/16/19 05:55 Potassium 3.7 mmol/L (3.5-5.1) 06/16/19 05:55 Chloride 110 mmol/L (98-107) H 06/16/19 05:55 Carbon Dioxide 28 mmol/L (21-32) 06/16/19 05:55 Anion Gap 5 MMOL/L (8-16) L 06/16/19 05:55 BUN 8.6 mg/dL (7-18) 06/16/19 05:55 Creatinine 1.0 mg/dL (0.55-1.3) 06/16/19 05:55 Random Glucose 80 mg/dL (74-106) 06/16/19 05:55 Calcium 8.6 mg/dL (8.5-10.1) 06/16/19 05:55 Total Bilirubin 1.0 mg/dL (0.2-1) 06/11/19 06:10 AST 65 U/L (15-37) H 06/11/19 06:10 ALT 38 U/L (13-61) 06/11/19 06:10 Alkaline Phosphatase 94 U/L (45-117) 06/11/19 06:10 Total Protein 6.5 g/dl (6.4-8.2) 06/11/19 06:10 Albumin 3.5 g/dl (3.4-5.0) 06/11/19 06:10 CARDIAC ENZYMES Creatine Kinase 273 U/L (26-192) H 06/16/19 05:55 Troponin I 0.06 ng/ml (0.00-0.05) H 06/10/19 13:24 Plan: 86 y.o. female with a PMH of Alzheimer's Dementia, HTN and L5 radiculopathy, presenting s/p fall. Patient is poor historian secondary to Dementia, and patients daughter at bedside provided history. Patient presented found on the floor in the bathroom. Aid noted the patient was clinging to her bath curtains, complaining of neck and low back pain. Aid noted the patient was awake and conversational, but was nervous, confused, and unsure of what had happened ( patient cannot recall the event). Patient is oriented to place and person at baseline. She presents with bruising to the left shoulder and left knee, and endorses left hip pain while in the ED. The patient is not on aspirin, plavix, Coumadin, or any other blood thinners. Denied fever, chills, chest pain, SOB, palpitation, dizziness, N, V, D, abdominal pain, bladder and bowel problems, leg swelling, rash. No sick contacts or travel. No new changes in medications. No suspicious food intake. I was consulted as patient reportedly withtremor of the right upper extremity.. According to the daughter this was not present previously and possibly related to acute hospitalization. I discussed with them that there are medications available for tremor such as primidone 50 mg but at this point it may be better to just monitor and discussed the tremor continues as an outpatient taken follow-up in the office for further evaluation and management. The daughter was in agreement and wanted to pursue conservative measures. Noncontrast head CT that was completed on admission and did not show any significant structural abnormalities. Receiving Ceftriaxone, IV , at bedside and much more calm and relaxed, knows that she is in the hospital but cannot come me the exact name.. Continue dementia medications consider psych evaluation if needed for hallucinations. Fall precautions recommended, maintain adequate hydration. Patient to follow-up in office if tremor continues after discharge. Mental status significantly better, discharge planning per primary care physician
[2019-06-17] MEDS ORDERED: DEXTROSE 5%-WATER - 50 ML IVPB ONE (09:26)
[2019-06-17] MEDS ORDERED: cefTRIAXone SODIUM 1 GM VIAL ONE (09:26)
[2019-06-17] MEDS: SODIUM CHLORIDE 0.45% 1,000 ML IV SCH (09:39)
[2019-06-17] MEDS: CEFTRIAXONE 1 GM in DEXTROSE 5%-WATER - 50 ML IVPB SCH (09:41)
[2019-06-17] MEDS: LOSARTAN 50MG/HCTZ 12.5MG 1 TAB (FP) PO SCH (09:42)
[2019-06-17] MEDS: DONEPEZIL HCL 5 MG TABLET (FP) PO SCH (09:42)
[2019-06-17] MEDS: MEMANTINE HCL 10 MG TABLET (FP) PO SCH (09:43)
[2019-06-17] MEDS: POTASSIUM CHLORIDE TABS 20 MEQ TABLET.ER (FP) PO SCH ×2 (09:43→10:21)
[2019-06-17 10:03] VITALS: BMI 25.5
--- NOTE | 2019-06-17 12:17 | DS ---
Physical Examination Vital Signs: Vital Signs Temperature 98.7 F 06/17/19 06:00 Pulse Rate 88 06/17/19 11:14 Respiratory Rate 16 06/17/19 11:14 Blood Pressure 142/109 H 06/17/19 11:14 O2 Sat by Pulse Oximetry (%) 96 06/16/19 21:00 Constitutional: Yes: Well Nourished, Calm Eyes: Yes: Conjunctiva Clear, EOM Intact HENT: Yes: Atraumatic, Normocephalic Neck: Yes: Supple, Trachea Midline Cardiovascular: Yes: Regular Rate and Rhythm Respiratory: Yes: Regular, CTA Bilaterally Gastrointestinal: Yes: Normal Bowel Sounds, Soft ...Rectal Exam: Yes: Deferred Renal/: Yes: WNL Breast(s): Yes: WNL Musculoskeletal: Yes: WNL Extremities: Yes: WNL Edema: No Peripheral Pulses WNL: No Integumentary: Yes: WNL Neurological: Yes: Alert, Confusion ...Motor Strength: WNL Psychiatric: Yes: Alert Labs: CBC, BMP 06/16/19 05:55 06/16/19 05:55 Discharge Summary Problems reviewed: Yes Reason For Visit: RHABDOMYOLYSIS Current Active Problems Elevated creatine kinase level (Acute) Rhabdomyolysis (Acute) Hospital Course: 88 y/o female admitted from [facility] s/p unwitnessed fall. Xrays and head CT neg. Followed by Neuro for new onset tremors. Treated with IV antibiotics for UTI. PMHx includes HTN, Dementia and Disc Herniation. Plan of Treatment: Pt to be transferred to rehab facility in [place] closer to dtr's residence as patient no longer able to live alone. Condition: Stable - Instructions Referrals: Yue Doyle [Primary Care Provider] - Disposition: RESIDENTIAL FACILITY - Home Medications Comprehensive Discharge Medication List: Ambulatory Orders Donepezil HCl [Aricept -] 10 mg PO DAILY tablet 07/30/16 Memantine HCl [Namenda -] 28 mg PO DAILY 06/29/17 Telmisartan/Hydrochlorothiazid [Telmisartan-Hctz 40-12.5 mg Tb] 1 each PO DAILY 06/29/17 Prescription Drug Monitoring Program (I-STOP) results: I-STOP not reviewed (Not taking controlled meds)
[2019-06-17 14:09] VITALS: BP 158/91; PULSE 91; TEMP 97.8
== END 2019-06-17 15:50 | DRG 565 ==
LOC: JER 09:48 → JERBED 14:16 → J4S 15:13 → OBSVTOIN 15:25 → JSAMEDAYSX 06-11 09:32 → J4S 06-11 09:36
PROVIDERS: ADMIT Family Medicine; ATTEND Family Medicine
DX: T79.6XXA Traumatic ischemia of muscle, initial encounter (principal); R44.3 Hallucinations, unspecified; M51.16 Intervertebral disc disorders with radiculopathy, lumbar region; R25.1 Tremor, unspecified; G30.9 Alzheimer's disease, unspecified; F02.80 Dementia in other diseases classified elsewhere, unspecified severity, without behavioral disturbance, psychotic disturbance, mood disturbance, and anxiety; I10 Essential (primary) hypertension; W19.XXXA Unspecified fall, initial encounter; M54.2 Cervicalgia; R58 Hemorrhage, not elsewhere classified; S40.019A Contusion of unspecified shoulder, initial encounter
CPT/HCPCS: 36415; 70450-TC; 71045-TC-FY; 71046-TC-FY; 72125-TC; 73030-TC-LT-FY; 73523-TC-FY; 73562-TC-LT-FY; 80048; 80053; 81003; 82272; 82550; 82553; 83735; 84443; 84484; 85025; 85027; 87086; 87186; 90670; 93005; 93010; 97116-GP; 97162-GP; 99285-25; G0008; G0009; G0378; Q2036